=== PATIENT | male | born 1960 | race Caucasian/White ===

== ENCOUNTER 2018-02-21 08:15 | Observation (INO) ==
[2018-02-21] MEDS ORDERED: Ipratropium/Albuterol Neb 3 ML IH ONE (08:56)
--- NOTE | 2018-02-21 09:08 | Emergency Department Note ---
Disposition Clinical Impression: Acute dyspnea Acute exacerbation of CHF (congestive heart failure) Qualifiers: Heart failure type: unspecified Qualified Code(s): I50.9 - Heart failure, unspecified A-fib Qualifiers: Atrial fibrillation type: persistent Qualified Code(s): I48.1 - Persistent atrial fibrillation Disposition: Admitted As Inpatient Condition: Undetermined Referrals: Colin Mancini MD [Primary Care Provider] - Forms: ED Satisfaction Letter Time of Disposition: 10:40 SOB HPI - General Chief Complaint: ED Shortness of Breath/Dyspnea Stated Complaint: shortness of breath Time Seen by Provider: 02/21/18 08:31 Source: patient, EMS Mode of arrival: EMS Limitations: no limitations Nursing Notes Reviewed: Yes Vital Signs Reviewed: Yes - History of Present Illness 57-year-old male with history of atrial fibrillation, CHF, cardiomyopathy, arrives to the emergency department complaining of shortness of breath. The patient states this started roughly 2 days ago. He has no other associated complaints, no chest pain, no unilateral leg swelling, no hemoptysis, no history of DVT or PE. The patient states that this is similar to episodes in the past. He has no previous cardiac disease. Patient denies any other complaints at this time. He is resting comfortably. - Related Data Home Medications Medication Instructions Recorded Confirmed FLUoxetine HCl [Prozac] 20 mg PO DAILY 07/24/15 09/06/16 Lisinopril [Zestril] 20 mg PO DAILY 07/24/15 09/06/16 RisperiDONE [Risperdal] 3 mg PO HS 07/24/15 09/06/16 Simvastatin [Zocor] 20 mg PO HS 07/24/15 09/06/16 Carvedilol [Coreg] 37.5 mg PO BID 10/19/15 09/06/16 Digoxin [Lanoxin] 0.125 mg PO DAILY 10/19/15 09/06/16 Diltiazem HCl [Cardizem LA] 120 mg PO DAILY 10/19/15 09/06/16 Furosemide [Lasix] 20 mg PO DAILY 10/19/15 09/06/16 Multivitamin/Iron/Folic Acid 1 each PO DAILY 10/19/15 09/06/16 [Centrum Complete Multivit Tab] Sitagliptin Phosphate [Januvia] 50 mg PO DAILY 06/23/16 09/06/16 Dabigatran [Pradaxa] 150 mg PO BID 09/06/16 09/06/16 Mupirocin [Bactroban Oint] 1 appl TP DAILY 09/06/16 09/06/16 Oxybutynin [Ditropan] 5 mg PO DAILY 09/06/16 09/06/16 Previous Rx's Medication Instructions Recorded Potassium Chloride 10 meq PO DAILY #30 tab.er.prt 10/28/15 Hydrocodone/Acetaminophen 1 each PO Q6H PRN #10 tablet 07/05/16 [Hydrocodone-Acetamin 5-325 mg] levoFLOXacin [Levofloxacin] 500 mg PO DAILY #10 tablet 09/08/16 Ciprofloxacin HCl [Cipro] 500 mg PO BID #20 tablet 09/13/16 Meclizine HCl [Verticalm] 25 mg PO Q6H #20 tablet 09/13/16 Allergies Allergy/AdvReac Type Severity Reaction Status Date / Time cephalexin [From Keflex] Allergy Rash Verified 09/06/16 18:34 All systems ED: reviewed and negative except as stated. Constitutional: Denies: fever, chills, weakness ENT ED: Denies: congestion Cardiovascular: Reports: dyspnea on exertion. Denies: chest pain Respiratory: Reports: cough, dyspnea. Denies: wheezes Gastrointestinal: Denies: abdominal pain, nausea, vomiting Genitourinary: Denies: urgency, dysuria Musculoskeletal: Denies: back pain Neurological: Denies: headache Past Medical History - Past Medical History Attestation: Yes The following information was validated with the patient. Source: patient, old records reviewed Medical history: Reports: atrial fibrillation, cardiomyopathy, CHF, coronary artery disease, diabetes, hypertension, other Surgical history: Reports: cholecystectomy Psychiatric history: Reports: depression, other - Social History Smoking Status: Never smoker Smokeless Tobacco Status: No Alcohol use: Reports: none Drug use: Reports: none Physical Exam - General Limitations: no limitations General appearance: alert, in no apparent distress - Head Head exam: atraumatic, normocephalic, normal inspection - Eye Eye exam: Present: normal appearance, PERRL, EOMI - ENT ENT exam: normal exam, normal oropharynx, mucous membranes moist - Neck Neck exam: Present: normal inspection, full ROM, trachea midline - Chest Chest inspection: Present: normal inspection, symmetric chest wall rise - Respiratory Respiratory exam: Present: wheezes (mild expiratory) - Cardiovascular Cardiovascular exam: Present: regular rate, irregular rhythm, normal heart sounds - Abdominal Exam Abdominal exam: Present: soft, Non-Tender. Absent: tenderness, distention, guarding, rebound, rigidity - Extremities Exam Extremities exam: Present: normal inspection, full ROM. Absent: tenderness, pedal edema - Neurological Exam Neurological exam: Present: alert, oriented X3 - Skin Skin exam: Present: warm, dry, intact, normal color Course Vital Signs Temperature 98.4 F 02/21/18 08:16 Pulse Rate 104 02/21/18 08:16 Respiratory Rate 20 02/21/18 08:16 Blood Pressure 174/98 02/21/18 08:16 O2 Sat by Pulse Oximetry 94 02/21/18 08:16 Temperature 98.4 F 02/21/18 08:16 Pulse Rate 104 02/21/18 08:16 Respiratory Rate 16 02/21/18 10:31 Blood Pressure 174/98 02/21/18 08:16 O2 Sat by Pulse Oximetry 93 02/21/18 10:31 Oxygen Delivery Oxygen Delivery Room Air Shortness of Breath/Dyspnea - MDM Narrative Medical decision making narrative: Patient's workup in the emergency department distress findings consistent with congestive heart failure as the patient has some vascular congestion as well as cardiogenic pulmonary edema. The patient is mildly short of breath but given the patient's complex social history combined with his worsening shortness of breath, we will admit the patient to the hospital at this time. The patient was agreeing to plan. No further questions or concerns noted at this time. The patient was administered 40 mg IV Lasix here in the emergency department. His O2 saturation is ranging from 91-94% on room air. The patient is not tachypneic at this time. In addition the patient has a history of atrial fibrillation and is heart rate is noted to be in the 80s to low 100s. We will continue to monitor this. Patient made aware and agrees to plan. Accepted by Dr. Wiley. - Medical Records Medical records reviewed: Yes I reviewed the patient's medical records. - Lab Data Lab results reviewed: Yes I reviewed the patient's lab results. Result diagrams: 02/21/18 09:10 02/21/18 09:10 Lab Results 02/21/18 02/21/18 02/21/18 Range/Units 09:10 09:10 09:10 WBC 12.8 H (4.3-11.1) K/mcL RBC 4.81 (4.19-5.50) M/mcL Hgb 12.8 L (12.9-16.9) g/dL Hct 40.4 (37.5-50.1) % MCV 84.0 (83.0-100.0) fL MCH 26.6 L (28.0-33.3) pg MCHC 31.7 (31.6-35.5) g/dL RDW 15.6 H (11.5-14.5) % Plt Count 248 (140-400) K/mcL MPV 10.5 (9.4-12.4) fL Immature Gran % 0.5 (0-4) % Seg Neutrophils % 81.8 % Lymphocytes % 6.9 % Monocytes % 8.1 % Eosinophils % 2.2 % Basophils % 0.5 % Neutrophils # 10.5 H (1.6-8.9) K/mcL Lymphocytes # 0.9 (0.6-4.6) K/mcL Monocytes # 1.0 (0.0-1.3) K/mcL Eosinophils # 0.3 (0.0-0.6) K/mcL Basophils # 0.1 (0.0-0.2) K/mcL PT 14.7 H (9.4-12.1) Seconds INR 1.4 APTT 50.5 H (26.0-36.0) Seconds Sodium 140 (136-145) mEq/L Potassium 3.8 (3.5-5.1) mEq/L Chloride 103 (98-107) mEq/L Carbon Dioxide 28 (23-29) mEq/L BUN 15 (6-20) mg/dL Creatinine 0.95 (0.70-1.30) mg/dL Est GFR ( Amer) > 60 (> 60) Est GFR (Non-Af Amer) > 60 (> 60) BUN/Creatinine Ratio 16 (6-26) Glucose 139 H (70-105) mg/dL Calculated Osmolality 293 (280-300) Calcium 9.0 (8.6-10.3) mg/dL Troponin I < 0.03 (< 0.04) ng/mL - Radiology Data Radiology results reviewed: Yes I reviewed the patient's radiology results. Chest X-Ray 02/21/18 08:56 IMPRESSION: Cardiomegaly with vascular congestion and cardiogenic pulmonary edema. D/ / Julio Odom MD / Julio Odom MD Interpreting Provider: Julio Odom MD - EKG Data EKG attestation: Yes I reviewed and interpreted this EKG. EKG results narrative: Heart rate 100 beats for minute. Atrial fibrillation. No ST elevation or ST depression noted. Similar to EKG performed on 09/13/2016. No acute changes with the exception of mild tachycardia.
--- NOTE | 2018-02-21 09:33 | Emergency Department Note ---
Disposition Clinical Impression: Acute exacerbation of CHF (congestive heart failure), Acute dyspnea, A-fib Disposition: Admitted As Inpatient Condition: Undetermined Referrals: Colin Mancini MD [Primary Care Provider] - Forms: ED Satisfaction Letter General Adult HPI - General Chief complaint: ED Shortness of Breath/Dyspnea Stated complaint: shortness of breath Time Seen by Provider: 02/21/18 08:31 Source: patient, EMS Mode of arrival: EMS Limitations: no limitations - History of Present Illness Pain Scale: 0 - Related Data Home Medications Medication Instructions Recorded Confirmed FLUoxetine HCl [Prozac] 20 mg PO DAILY 07/24/15 09/06/16 Lisinopril [Zestril] 20 mg PO DAILY 07/24/15 09/06/16 RisperiDONE [Risperdal] 3 mg PO HS 07/24/15 09/06/16 Simvastatin [Zocor] 20 mg PO HS 07/24/15 09/06/16 Carvedilol [Coreg] 37.5 mg PO BID 10/19/15 09/06/16 Digoxin [Lanoxin] 0.125 mg PO DAILY 10/19/15 09/06/16 Diltiazem HCl [Cardizem LA] 120 mg PO DAILY 10/19/15 09/06/16 Furosemide [Lasix] 20 mg PO DAILY 10/19/15 09/06/16 Multivitamin/Iron/Folic Acid 1 each PO DAILY 10/19/15 09/06/16 [Centrum Complete Multivit Tab] Sitagliptin Phosphate [Januvia] 50 mg PO DAILY 06/23/16 09/06/16 Dabigatran [Pradaxa] 150 mg PO BID 09/06/16 09/06/16 Mupirocin [Bactroban Oint] 1 appl TP DAILY 09/06/16 09/06/16 Oxybutynin [Ditropan] 5 mg PO DAILY 09/06/16 09/06/16 Previous Rx's Medication Instructions Recorded Potassium Chloride 10 meq PO DAILY #30 tab.er.prt 10/28/15 Hydrocodone/Acetaminophen 1 each PO Q6H PRN #10 tablet 07/05/16 [Hydrocodone-Acetamin 5-325 mg] levoFLOXacin [Levofloxacin] 500 mg PO DAILY #10 tablet 09/08/16 Ciprofloxacin HCl [Cipro] 500 mg PO BID #20 tablet 09/13/16 Meclizine HCl [Verticalm] 25 mg PO Q6H #20 tablet 09/13/16 Allergies Allergy/AdvReac Type Severity Reaction Status Date / Time cephalexin [From Keflex] Allergy Rash Verified 09/06/16 18:34 Constitutional: Denies: fever, chills, weakness ENT ED: Denies: congestion Cardiovascular: Reports: dyspnea on exertion. Denies: chest pain Respiratory: Reports: cough, dyspnea. Denies: wheezes Gastrointestinal: Denies: abdominal pain, nausea, vomiting Genitourinary: Denies: urgency, dysuria Musculoskeletal: Denies: back pain Neurological: Denies: headache Past Medical History - Past Medical History Medical history: Reports: atrial fibrillation, cardiomyopathy, CHF, coronary artery disease, diabetes, hypertension, other Surgical history: Reports: cholecystectomy Psychiatric history: Reports: depression, other - Social History Smoking Status: Never smoker Smokeless Tobacco Status: No Alcohol use: Reports: none Drug use: Reports: none Physical Exam - General Limitations: no limitations General appearance: alert, in no apparent distress Course Vital Signs Temperature 98.4 F 02/21/18 08:16 Pulse Rate 104 02/21/18 08:16 Respiratory Rate 20 02/21/18 08:16 Blood Pressure 174/98 02/21/18 08:16 O2 Sat by Pulse Oximetry 94 02/21/18 08:16 Temperature 98.4 F 02/21/18 08:16 Pulse Rate 104 02/21/18 08:16 Respiratory Rate 16 02/21/18 10:31 Blood Pressure 174/98 02/21/18 08:16 O2 Sat by Pulse Oximetry 93 02/21/18 10:31 Oxygen Delivery Oxygen Delivery Room Air Medical Decision Making - Lab Data Result diagrams: 02/21/18 09:10 02/21/18 09:10 Lab Results 02/21/18 02/21/18 02/21/18 Range/Units 09:10 09:10 09:10 WBC 12.8 H (4.3-11.1) K/mcL RBC 4.81 (4.19-5.50) M/mcL Hgb 12.8 L (12.9-16.9) g/dL Hct 40.4 (37.5-50.1) % MCV 84.0 (83.0-100.0) fL MCH 26.6 L (28.0-33.3) pg MCHC 31.7 (31.6-35.5) g/dL RDW 15.6 H (11.5-14.5) % Plt Count 248 (140-400) K/mcL MPV 10.5 (9.4-12.4) fL Immature Gran % 0.5 (0-4) % Seg Neutrophils % 81.8 % Lymphocytes % 6.9 % Monocytes % 8.1 % Eosinophils % 2.2 % Basophils % 0.5 % Neutrophils # 10.5 H (1.6-8.9) K/mcL Lymphocytes # 0.9 (0.6-4.6) K/mcL Monocytes # 1.0 (0.0-1.3) K/mcL Eosinophils # 0.3 (0.0-0.6) K/mcL Basophils # 0.1 (0.0-0.2) K/mcL PT 14.7 H (9.4-12.1) Seconds INR 1.4 APTT 50.5 H (26.0-36.0) Seconds Sodium 140 (136-145) mEq/L Potassium 3.8 (3.5-5.1) mEq/L Chloride 103 (98-107) mEq/L Carbon Dioxide 28 (23-29) mEq/L BUN 15 (6-20) mg/dL Creatinine 0.95 (0.70-1.30) mg/dL Est GFR ( Amer) > 60 (> 60) Est GFR (Non-Af Amer) > 60 (> 60) BUN/Creatinine Ratio 16 (6-26) Glucose 139 H (70-105) mg/dL Calculated Osmolality 293 (280-300) Calcium 9.0 (8.6-10.3) mg/dL Troponin I < 0.03 (< 0.04) ng/mL Critical Care Time Critical Care Time: Yes Total Critical Care Time: 35 Attestation: Critical care performed: Time is exclusive of separately billable procedures. Time includes: direct patient care, patient reassessment, coordination of patient care, interpretation of data (laboratory data, radiology data, and respiratory data), review of patient's medical records, medical consultation and documentation of patient care. Procedures included in critical care time: Procedures excluded from critical care time: Attestation Statement - Attestation Attestation: I examined this patient and my medical decision-making was reviewed with the Resident Physician. I agree with the documented findings, disposition and treatment plan as described except to the extent set forth below. Patient to the ED was achieved with shortness of breath. Patient is a history of a developmental delay. On examination he does not appear dyspneic. His lungs are coarse. Plan. Nebs, chest x-ray reevaluate. Patient still dyspneic. Chest x-ray shows pulmonary edema. Patient with decompensated heart failure. Admitted to medicine.
[2018-02-21 09:37] LABS: Basophils # 0.1 K/mcL (0.0-0.2); Basophils % 0.5 %; Eosinophils # 0.3 K/mcL (0.0-0.6); Eosinophils % 2.2 %; Hematocrit 40.4 % (37.5-50.1); Hemoglobin 12.8 g/dL (12.9-16.9); Immature Granulocytes % 0.5 % (0-4); Lymphocytes # 0.9 K/mcL (0.6-4.6); Lymphocytes % 6.9 %; Mean Corpuscular HGB Conc 31.7 g/dL (31.6-35.5); Mean Corpuscular Hemoglobin 26.6 pg (28.0-33.3); Mean Platelet Volume 10.5 fL (9.4-12.4); Monocytes % 8.1 %; Neutrophils # 10.5 K/mcL (1.6-8.9); Platelet Count 248 K/mcL (140-400); Red Blood Count 4.81 M/mcL (4.19-5.50); Red Cell Distribution Width 15.6 % (11.5-14.5); Segmented Neutrophils % 81.8 %
[2018-02-21 09:45] LABS: INR 1.4; Prothrombin Time 14.7 Seconds (9.4-12.1)
[2018-02-21 09:47] LABS: Activated Partial Thrombo Time 50.5 Seconds (26.0-36.0)
[2018-02-21] MEDS ORDERED: Furosemide 40 MG/4 ML VIAL IVP ONE (09:55)
[2018-02-21 09:56] LABS: BUN/Creatinine Ratio 16 (6-26); Blood Urea Nitrogen 15 mg/dL (6-20); Carbon Dioxide 28 mEq/L (23-29); Chloride 103 mEq/L (98-107); Glucose 139 mg/dL (70-105); Osmolality,Calculated 293 (280-300); Potassium 3.8 mEq/L (3.5-5.1); Sodium 140 mEq/L (136-145); eGFR For African Americans > 60 (> 60); eGFR For Non-African Americans > 60 (> 60)
[2018-02-21 09:57] LABS: Troponin I < 0.03 ng/mL (< 0.04)
[2018-02-21] MEDS ORDERED: Ipratropium/Albuterol Neb 3 ML IH PRN (10:44)
[2018-02-21] MEDS ORDERED: Acetaminophen 325 MG TABLET PO PRN (10:49)
[2018-02-21] MEDS ORDERED: Naloxone 0.4 MG/ML INJ IVP PRN (10:49)
[2018-02-21] MEDS ORDERED: Dextrose Gel 15 GM/37.5 ML TUBE PO PRN ×2 (10:51)
[2018-02-21] MEDS ORDERED: *HR* Dextrose 50 % in Water (Syg) 50 ML SYRINGE IVP PRN (10:51)
[2018-02-21] MEDS ORDERED: D5% in Water 1,000 ML IVC PRN (10:51)
[2018-02-21 11:25] LABS: Estimated Average Glucose 131 mg/dl; Hemoglobin A1C 6.2 %
--- NOTE | 2018-02-21 11:30 | Internal Med History&Physical ---
Date of Encounter: 02/21/18 Time of Encounter: 10:47 Internal Medicine - H&P: HPI Chief complaint: "Short of breath" Admitted From: Emergency Dept Plans for Post Hospital Care: Home History of present illness: Mr. Park is a 57 year old male who presented to ED this morning after waking up with worsening "short of breath." He states that he started having progressively worsening SOB since 2 days ago. He states that he has a history of CHF and AFib. He states that he intermittently has episodes where he gets SOB. He does not wear supplemental oxygen at home. He denies any history of asthma or COPD. He denies fever, chills, chest pain, BLE edema, nausea, vomiting, abdominal pain, changes in bladder, or changes in bowels. He states that he lives at home alone. He has been compliant with all of his medications. At the time of my examination, he denies any SOB. He states that his respiratory status is back to baseline. He is saturating mid-90s on room air. He does not look to be in any distress. In the ED, CXR showed pulmonary vascular congestion consistent with CHF. Labwork was unremarkable. He received 1 dose of IV lasix 40 mg and 1 duoneb treatment. HR is in 80s and NSR. Past Med Surg Social Fam HX - Past Medical History Attestation: Yes The following information was validated with the patient. Source: patient Medical history: atrial fibrillation, cardiomyopathy, CHF, coronary artery disease, diabetes, hyperlipidemia, hypertension, other Psychiatric history: depression, other - Past Surgical History Surgical History: cholecystectomy - Social History Smoking Status: Never smoker Smokeless Tobacco Status: No Alcohol use: none Drug use: none - Family History Mother Family Member Ethnicity: Non- Living Status: Hx Family Cardiac Disorders: No Hx Family Respiratory Disorders: No Hx Family Cancer: No Hx Family GI Disorders: No Hx Family Endocrine Disorder: Yes (DM) Hx Family Neuromuscular Disorders: No Hx Family Neurologic Disorders: No Hx Family HEENT Disorders: No Hx Family Autoimmune Disorders: No Father Family Member Ethnicity: Non- Living Status: Hx Family Cardiac Disorders: No Hx Family Respiratory Disorders: No Hx Family Cancer: Yes (LUNG CANCER) Hx Family GI Disorders: No Hx Family Endocrine Disorder: Yes Hx Family Neuromuscular Disorders: No Hx Family Neurologic Disorders: No Hx Family HEENT Disorders: No Hx Family Autoimmune Disorders: No - Additional Family History Additional family history: Family history reviewed with patient. Internal Medicine - H&P: Meds FLUoxetine HCl [Prozac] 20 mg PO DAILY 07/24/15 [History] Lisinopril [Zestril] 20 mg PO DAILY 07/24/15 [History] RisperiDONE [Risperdal] 3 mg PO HS 07/24/15 [History] Simvastatin [Zocor] 20 mg PO HS 07/24/15 [History] Carvedilol [Coreg] 37.5 mg PO BID 10/19/15 [History] Digoxin [Lanoxin] 0.125 mg PO DAILY 10/19/15 [History] Diltiazem HCl [Cardizem LA] 120 mg PO DAILY 10/19/15 [History] Furosemide [Lasix] 20 mg PO DAILY 10/19/15 [History] Multivitamin/Iron/Folic Acid [Centrum Complete Multivit Tab] 1 each PO DAILY 04/26 [History] Potassium Chloride 10 meq PO DAILY #30 tab.er.prt 10/28/15 [Rx] Sitagliptin Phosphate [Januvia] 50 mg PO DAILY 06/23/16 [History] Hydrocodone/Acetaminophen [Hydrocodone-Acetamin 5-325 mg] 1 each PO Q6H PRN #10 tablet 07/05/16 [Rx] Dabigatran [Pradaxa] 150 mg PO BID 09/06/16 [History] Mupirocin [Bactroban Oint] 1 appl TP DAILY 09/06/16 [History] Oxybutynin [Ditropan] 5 mg PO DAILY 09/06/16 [History] levoFLOXacin [Levofloxacin] 500 mg PO DAILY #10 tablet 09/08/16 [Rx] Ciprofloxacin HCl [Cipro] 500 mg PO BID #20 tablet 09/13/16 [Rx] Meclizine HCl [Verticalm] 25 mg PO Q6H #20 tablet 09/13/16 [Rx] 3 Allergy/AdvReac Type Severity Reaction Status Date / Time cephalexin [From Keflex] Allergy Rash Verified 09/06/16 18:34 All Systems PM: A 10-system review of systems was performed and is negative for pertinent findings except as documented above in the HPI. - Constitutional Vitals: Temp Pulse Resp BP Pulse Ox 98.4 F 104 16 174/98 93 02/21/18 08:16 02/21/18 08:16 02/21/18 10:31 02/21/18 08:16 02/21/18 10:31 General appearance: Present: cooperative, A&O X 3, pleasant, no acute distress, answers questions appropriately - Head Head exam: Present: atraumatic, normal inspection, normocephalic - Eye Eye exam: Present: EOMI, PERRL. Absent: conjunctival injection, nystagmus, scleral icterus - ENT ENT exam: Present: mucous membranes moist, normal external ear exam, normal oropharynx - Neck Neck exam general surgery: Present: supple, trachea midline. Absent: lymphadenopathy, tenderness, thyromegaly - Respiratory Respiratory exam: Present: CTAB. Absent: accessory muscle use, rales, rhonchi, wheezes Additional comments: Normal WOB - Cardiovascular Cardiovascular exam: Present: RRR, +S1, +S2. Absent: diastolic murmur, gallop, rubs, systolic murmur Additional comments: Trace BLE edema - GI/Abdominal GI/Abdominal exam: Present: normal bowel sounds, soft. Absent: distended, hepatomegaly, mass, splenomegaly, tenderness - Neurological Exam Neurological exam: Present: alert, CN II-XII intact, oriented X3, no focal deficits, strengths equal and symetr throughout. Absent: motor sensory deficit , facial droop, speech deficit - Psychiatric Psychiatric exam: Present: normal affect, normal mood. Absent: agitated, anxious, depressed - Skin Skin exam: Present: dry, intact, warm. Absent: cyanosis, rash Internal Med - H&P Results - Labs CBC & Chem 7: 02/21/18 09:10 02/21/18 09:10 - VTE Contraindication No Overlap Therapy: Admin of oral Factor Xa Inhibitor - Assessment and plan (1) Acute exacerbation of CHF (congestive heart failure) Current Visit: Yes Status: Acute Assessment and plan: Admit for observation with telemetry. Looks like patient is now back to baseline respiratory status. Will observe overnight. Continue IV lasix 40 mg BID. Restrict fluids to 2L/day. Monitor strict I&Os and daily weights. Continue home medications. Supplemental oxygen and duonebs PRN SOB. Recheck labwork in AM. Obtain new ECHO in AM (last one in 2016). Qualifiers: Heart failure type: unspecified Qualified Code(s): I50.9 - Heart failure, unspecified (2) A-fib Current Visit: Yes Status: Chronic Assessment and plan: Looks to be in NSR and rate-controlled. Will continue home medications and anticoagulation. Continue telemetry. Repeat ECHO in AM as per above. Qualifiers: Atrial fibrillation type: persistent Qualified Code(s): I48.1 - Persistent atrial fibrillation (3) Cardiomyopathy Current Visit: Yes Status: Chronic Assessment and plan: Repeat ECHO in AM as per above. Continue telemetry. Qualifiers: Cardiomyopathy type: unspecified Qualified Code(s): I42.9 - Cardiomyopathy , unspecified (4) BPH (benign prostatic hypertrophy) with urinary obstruction Current Visit: Yes Status: Chronic Assessment and plan: Continue home medications. (5) Diabetes mellitus with neuropathy Current Visit: Yes Status: Chronic Assessment and plan: Continue accuchecks and SSI QID AC/HS. Start diabetic/cardiac/fluid restricted diet. Qualifiers: Diabetes mellitus type: type 2 Diabetes mellitus mcc insulin use: without intermodal dispatcher use Qualified Code(s): E11.40 - Type 2 diabetes mellitus with diabetic neuropathy, unspecified (6) Hyperlipidemia Current Visit: Yes Status: Chronic Assessment and plan: Continue home medications. Qualifiers: Hyperlipidemia type: unspecified Qualified Code(s): E78.5 - Hyperlipidemia , unspecified (7) Hypertension Current Visit: Yes Status: Chronic Assessment and plan: Continue home medications. Added hydralazine IV PRN HTN. Qualifiers: Hypertension type: essential hypertension Qualified Code(s): I10 - Essential (primary) hypertension (8) DVT prophylaxis Current Visit: Yes Status: Acute Assessment and plan: Continue home dabigatran and SCDs. - Time Spent With Patient Total time spent is greater than 50% in coordination of care (as documented) at patient's floor/unit and/or counseling patient: less than 15 minutes
[2018-02-21] MEDS: Insulin LISPRO 300 UNITS/3 ML VIAL SQ SCH ×3 (13:06→21:30)
[2018-02-21] MEDS: Multivit/Ca/Min/Fe/FA 1 TAB TABLET PO SCH (14:33)
[2018-02-21] MEDS: *HR* Dabigatran 150 MG CAPSULE PO SCH ×2 (14:33→21:31)
[2018-02-21] MEDS: Iron Polysaccharide Complex 150 MG CAPSULE PO SCH (14:33)
[2018-02-21] MEDS: RisperiDAL 3 MG TABLET PO SCH (14:34)
[2018-02-21] MEDS: Furosemide 40 MG/4 ML VIAL IVP SCH ×2 (14:34→21:30)
[2018-02-21] MEDS: Lisinopril 20 MG TABLET PO SCH (14:34)
[2018-02-21] MEDS: FLUoxetine 20 MG CAPSULE PO SCH (14:34)
[2018-02-21] MEDS: *HR* Digoxin 0.125 MG TABLET PO SCH (14:34)
--- NOTE | 2018-02-21 16:46 | Electrocardiograph Report ---
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
[2018-02-21] MEDS: Diltiazem CD (24hr) 120 MG CAPSULE PO SCH (18:59)
[2018-02-22 07:17] LABS: Basophils # 0.1 K/mcL (0.0-0.2); Basophils % 0.7 %; Eosinophils # 0.4 K/mcL (0.0-0.6); Eosinophils % 3.6 %; Hemoglobin 13.6 g/dL (12.9-16.9); Immature Granulocytes % 0.5 % (0-4); Lymphocytes # 1.2 K/mcL (0.6-4.6); Lymphocytes % 9.9 %; Mean Corpuscular HGB Conc 32.4 g/dL (31.6-35.5); Mean Corpuscular Hemoglobin 26.6 pg (28.0-33.3); Mean Platelet Volume 10.2 fL (9.4-12.4); Monocytes # 1.2 K/mcL (0.0-1.3); Monocytes % 9.9 %; Neutrophils # 9.4 K/mcL (1.6-8.9); Platelet Count 286 K/mcL (140-400); Red Blood Count 5.12 M/mcL (4.19-5.50); Red Cell Distribution Width 15.7 % (11.5-14.5); Segmented Neutrophils % 75.4 %
[2018-02-22 07:32] LABS: BUN/Creatinine Ratio 15 (6-26); Blood Urea Nitrogen 16 mg/dL (6-20); Calcium 9.1 mg/dL (8.6-10.3); Carbon Dioxide 32 mEq/L (23-29); Chloride 99 mEq/L (98-107); Glucose 117 mg/dL (70-105); Osmolality,Calculated 290 (280-300); Potassium 3.3 mEq/L (3.5-5.1); Sodium 139 mEq/L (136-145); eGFR For African Americans > 60 (> 60); eGFR For Non-African Americans > 60 (> 60)
[2018-02-22] MEDS: Insulin LISPRO 300 UNITS/3 ML VIAL SQ SCH ×4 (07:45→20:29)
[2018-02-22] MEDS: FLUoxetine 20 MG CAPSULE PO SCH (10:46)
[2018-02-22] MEDS: Multivit/Ca/Min/Fe/FA 1 TAB TABLET PO SCH (10:46)
[2018-02-22] MEDS: Iron Polysaccharide Complex 150 MG CAPSULE PO SCH (10:46)
[2018-02-22] MEDS: Diltiazem CD (24hr) 120 MG CAPSULE PO SCH (10:46)
[2018-02-22] MEDS: *HR* Digoxin 0.125 MG TABLET PO SCH (10:47)
[2018-02-22] MEDS: *HR* Dabigatran 150 MG CAPSULE PO SCH ×2 (10:47→20:30)
[2018-02-22] MEDS: RisperiDAL 3 MG TABLET PO SCH (10:47)
[2018-02-22] MEDS: Furosemide 40 MG/4 ML VIAL IVP SCH ×2 (10:47→20:30)
[2018-02-22] MEDS: Lisinopril 20 MG TABLET PO SCH (10:47)
--- NOTE | 2018-02-22 13:19 | Discharge Summary ---
Orders not resulted at time of discharge: Pending orders 02/23/18 04:00 BMP [Basic Metabolic Panel] AM 0400 Date of Encounter: 02/22/18 Time of Encounter: 13:17 - Discharge Diagnosis (1) Acute on chronic diastolic (congestive) heart failure Status: Acute (2) Hypertension Status: Chronic Assessment and Plan: Continue home medications. Added hydralazine IV PRN HTN. Qualifiers: Hypertension type: essential hypertension Qualified Code(s): I10 - Essential (primary) hypertension (3) Hyperlipidemia Status: Chronic Assessment and Plan: Continue home medications. Qualifiers: Hyperlipidemia type: unspecified Qualified Code(s): E78.5 - Hyperlipidemia , unspecified (4) A-fib Status: Chronic Assessment and Plan: Looks to be in NSR and rate-controlled. Will continue home medications and anticoagulation. Continue telemetry. Repeat ECHO in AM as per above. Qualifiers: Atrial fibrillation type: persistent Qualified Code(s): I48.1 - Persistent atrial fibrillation (5) Diabetes mellitus with neuropathy Status: Chronic Assessment and Plan: Continue accuchecks and SSI QID AC/HS. Start diabetic/cardiac/fluid restricted diet. Qualifiers: Diabetes mellitus type: type 2 Diabetes mellitus buttermaker continuous churn insulin use: without buttermaker continuous churn use Qualified Code(s): E11.40 - Type 2 diabetes mellitus with diabetic neuropathy, unspecified (6) BPH (benign prostatic hypertrophy) with urinary obstruction Status: Chronic Assessment and Plan: Continue home medications. (7) Acute exacerbation of CHF (congestive heart failure) Status: Acute Assessment and Plan: Admit for observation with telemetry. Looks like patient is now back to baseline respiratory status. Will observe overnight. Continue IV lasix 40 mg BID. Restrict fluids to 2L/day. Monitor strict I&Os and daily weights. Continue home medications. Supplemental oxygen and duonebs PRN SOB. Recheck labwork in AM. Obtain new ECHO in AM (last one in 2017). Qualifiers: Heart failure type: unspecified Qualified Code(s): I50.9 - Heart failure, unspecified (8) Cardiomyopathy Status: Chronic Assessment and Plan: Repeat ECHO in AM as per above. Continue telemetry. Qualifiers: Cardiomyopathy type: unspecified Qualified Code(s): I42.9 - Cardiomyopathy , unspecified Hospital course: Mr. Park is a 57 year old male - Time Spent with Patient Total time spent providing and/or coordinating discharge services: - Discharge Medications Home Medications: FLUoxetine HCl [Prozac] 20 mg PO DAILY 07/24/15 [History] Lisinopril [Zestril] 20 mg PO DAILY 07/24/15 [History] Simvastatin [Zocor] 20 mg PO HS 07/24/15 [History] Carvedilol [Coreg] 37.5 mg PO BID 10/19/15 [History] Digoxin [Lanoxin] 0.125 mg PO DAILY 10/19/15 [History] Diltiazem HCl [Cardizem LA] 120 mg PO DAILY 10/19/15 [History] Furosemide [Lasix] 20 mg PO DAILY 10/19/15 [History] Multivitamin/Iron/Folic Acid [Centrum Complete Multivit Tab] 1 each PO DAILY 04/26 [History] Sitagliptin Phosphate [Januvia] 50 mg PO DAILY 06/23/16 [History] Dabigatran [Pradaxa] 150 mg PO BID 09/06/16 [History] Mupirocin [Bactroban Oint] 1 appl TP DAILY 09/06/16 [History] Oxybutynin [Ditropan] 5 mg PO DAILY 09/06/16 [History] Iron Polysaccharide Complex [Ferrex 150] 150 mg PO DAILY 02/21/18 [History] Potassium Chloride [K-Tab ER] 10 meq PO DAILY 02/21/18 [History] risperiDONE [RisperDAL] 3 mg PO DAILY 02/21/18 [History] Allergies/Adverse Reactions: 3 Allergy/AdvReac Type Severity Reaction Status Date / Time cephalexin [From Keflex] Allergy Rash Verified 02/21/18 12:21 Date of admission: 02/21/18 10:47 Primary care physician: Colin Mancini MD Consults: 02/21/18 10:51 Consult to Diabetes Education [CONS] Stat Comment: Reason for Consult: Diabetic Diet Education Consult to Examiner Of Currency [CONS] Routine Reason for SW Consult: Discharge Planning 02/22/18 09:38 Consult to Nurse Navigator [CONS] Routine Comment: CHF Discharging clinician: Caro Rodriguez Anticipated date of discharge: 02/22/18 - Constitutional Vitals: Temp Pulse Resp BP Pulse Ox 97.5 F L 79 16 111/65 95 02/22/18 12:02 02/22/18 12:02 06/14/18 12:02 02/22/18 12:02 02/22/18 12:02 General appearance: Present: cooperative, A&O X 3, pleasant, no acute distress, answers questions appropriately - Patient Status Condition: Undetermined - Discharge Instructions Follow Up With: Colin Mancini MD [Primary Care Provider] - - VTE Documentation of Mechanical Device: Intermittent pneumatic compression device Contraindication No Overlap Therapy: Admin of oral Factor Xa Inhibitor
--- NOTE | 2018-02-22 13:26 | Internal Med Progress Note ---
Date of Encounter: 02/22/18 Time of Encounter: 13:24 - Assessment and plan (1) Acute on chronic diastolic (congestive) heart failure Current Visit: Yes Status: Acute Assessment and plan: per hx. presented with worsening SOB. CXR with vascular congestion. BNP 177. TTE with EF 50%, indeterminate diastolic dysfunction, normal wall motion. Symptoms improving with IV Lasix. -2 L so far. Continue IV diuresis, daily weights and strict I&O's. (2) Hypertension Current Visit: Yes Status: Chronic Assessment and plan: per hx. BP controlled. Cont home BP medications. Qualifiers: Hypertension type: essential hypertension Qualified Code(s): I10 - Essential (primary) hypertension (3) Hyperlipidemia Current Visit: Yes Status: Chronic Assessment and plan: per hx. Cont home statin Qualifiers: Hyperlipidemia type: unspecified Qualified Code(s): E78.5 - Hyperlipidemia , unspecified (4) A-fib Current Visit: Yes Status: Chronic Assessment and plan: per hx. Rate controlled. Cont home BB, pradaxa and digoxin Qualifiers: Atrial fibrillation type: persistent Qualified Code(s): I48.1 - Persistent atrial fibrillation (5) DVT prophylaxis Current Visit: No Status: Acute Assessment and plan: pradaxa - Time Spent With Patient Total time spent is greater than 50% in coordination of care (as documented) at patient's floor/unit and/or counseling patient: - Subjective Interval history: Seen and examined at bedside. Patient is new to me, information obtained from chart review and patient report. Sitting up in chair bedside. Says he feels better. Still has some SOB with exertion. No chest pain. - Constitutional Vitals: Temp Pulse Resp BP Pulse Ox 97.5 F L 79 16 111/65 95 02/22/18 12:02 02/22/18 12:02 02/22/18 12:02 02/22/18 12:02 02/22/18 12:02 General appearance: Present: cooperative, A&O X 3, pleasant, no acute distress, answers questions appropriately - Head Head exam: Present: atraumatic, normocephalic - Eye Eye exam: Present: PERRL, conjuntiva pink, sclera anicteric Pupils: Present: PERRL - Neck Neck exam general surgery: Present: supple, trachea midline. Absent: lymphadenopathy - Respiratory Respiratory exam: Present: CTAB, rales (Scattered faint rails bilateral lower lobes). Absent: accessory muscle use, rhonchi, wheezes - Cardiovascular Cardiovascular exam: Present: RRR, +S1, +S2. Absent: diastolic murmur, gallop, rubs, systolic murmur - GI/Abdominal GI/Abdominal exam: Present: normal bowel sounds, soft, no peritoneal signs. Absent: distended, tenderness - Extremities Exam Extremities exam: Present: warm, radial pulses palpable and symmetrical. Absent : calf tenderness, cyanotic, pedal edema - Neurological Exam Neurological exam: Present: CN II-XII intact, oriented X3, no focal deficits. Absent: pronater drift, facial droop, speech deficit - Skin Skin exam: Present: dry, intact Internal Medicine: Result - Labs CBC & Chem 7: 02/22/18 06:52 02/22/18 06:52 Labs: Short CBC 02/22/18 Range/Units 06:52 WBC 12.4 H (4.3-11.1) K/mcL Hgb 13.6 (12.9-16.9) g/dL Hct 42.0 (37.5-50.1) % Plt Count 286 (140-400) K/mcL Neutrophils # 9.4 H (1.6-8.9) K/mcL BMP 02/22/18 06:52 Sodium 139 Potassium 3.3 L Chloride 99 Carbon Dioxide 32 H BUN 16 Creatinine 1.09 Glucose 117 H Calcium 9.1 - ABG Interpretation ABG results: PT/INR, D-dimer PT 14.7 Seconds (9.4-12.1) H 02/21/18 09:10 - Impressions Impressions Echocardiogram 02/21/18 10:53 Impressions: LVEF 50-55%. Indeterminate diastolic function. Mildly dilated left ventricle. Normal right ventricular structure and function. Mild mitral regurgitation. No pulmonary hypertension. Left Ventricular Wall Motion: Rest Echo Findings All wall segments showed normal motion. Findings: Study Quality * Technically adequate exam. ECG Findings * Atrial fibrillation. Left Ventricle * Indeterminate diastolic function. * Mildly dilated left ventricle. * LVEF 50-55%. Right Ventricle * Normal right ventricular structure and function. Left Atrium * Moderately dilated left atrium. Right Atrium * Normal right atrial size. Mitral Valve * Normal mitral valve structure. * No mitral stenosis. * Mild mitral regurgitation. Aortic Valve * No aortic regurgitation. * Aortic valve not well visualized. * No aortic stenosis. Tricuspid Valve * Tricuspid valve not well visualized. * Trace tricuspid regurgitation. * Estimated RA pressure is 3 mmHg. * Estimated RVSP is 25 mmHg. * No pulmonary hypertension. Pulmonic Valve * Pulmonic valve is not well visualized. * No pulmonic stenosis. * No pulmonic regurgitation. Pulmonary Artery * Pulmonary artery not well visualized. Aorta * Normally sized aortic root. Pericardium * There is no pericardial effusion present. Interatrial Septum * No evidence of PFO by color Doppler. IVC * Normal IVC dimensions and inspiratory collapse. - VTE Documentation of Mechanical Device: Intermittent pneumatic compression device Contraindication No Overlap Therapy: Admin of oral Factor Xa Inhibitor Consult Discharge Plan - Plan Referrals: Colin Mancini MD [Primary Care Provider] -
[2018-02-23 05:42] LABS: BUN/Creatinine Ratio 20 (6-26); Blood Urea Nitrogen 22 mg/dL (6-20); Calcium 9.3 mg/dL (8.6-10.3); Carbon Dioxide 26 mEq/L (23-29); Chloride 102 mEq/L (98-107); Glucose 134 mg/dL (70-105); Osmolality,Calculated 293 (280-300); Potassium 3.9 mEq/L (3.5-5.1); Sodium 139 mEq/L (136-145); eGFR For African Americans > 60 (> 60); eGFR For Non-African Americans > 60 (> 60)
[2018-02-23 07:09] VITALS: BP 125/82
[2018-02-23] MEDS: FLUoxetine 20 MG CAPSULE PO SCH (07:47)
[2018-02-23] MEDS: Diltiazem CD (24hr) 120 MG CAPSULE PO SCH (07:47)
[2018-02-23] MEDS: Multivit/Ca/Min/Fe/FA 1 TAB TABLET PO SCH (07:47)
[2018-02-23] MEDS: Iron Polysaccharide Complex 150 MG CAPSULE PO SCH (07:48)
[2018-02-23] MEDS: *HR* Dabigatran 150 MG CAPSULE PO SCH (07:48)
[2018-02-23] MEDS: Lisinopril 20 MG TABLET PO SCH (07:48)
[2018-02-23] MEDS: RisperiDAL 3 MG TABLET PO SCH (07:48)
[2018-02-23] MEDS: *HR* Digoxin 0.125 MG TABLET PO SCH (07:48)
[2018-02-23] MEDS: Furosemide 40 MG/4 ML VIAL IVP SCH (07:49)
--- NOTE | 2018-02-23 09:18 | Discharge Summary ---
Date of Encounter: 02/23/18 Time of Encounter: 09:23 - Discharge Diagnosis (1) Acute on chronic diastolic (congestive) heart failure Priority: Primary Status: Acute Assessment and Plan: per hx. Presented with worsening SOB. CXR with vascular congestion. BNP 177. TTE with EF 50%, indeterminate diastolic dysfunction, normal wall motion. Symptoms improved with IV Lasix (-2.8 liter). Appeared eulvolemic at time of discharge. Advised on low sodium diet and fluid restriction. Cont home Lasix, BB , digoxin, MAGO. Recommend follow-up with primary outpatient grants officer (2) Hypertension Priority: Primary Status: Chronic Assessment and Plan: per hx. BP controlled. Cont home BP medications. Qualifiers: Hypertension type: essential hypertension Qualified Code(s): I10 - Essential (primary) hypertension (3) Hyperlipidemia Priority: Primary Status: Chronic Assessment and Plan: per hx. Cont home statin Qualifiers: Hyperlipidemia type: unspecified Qualified Code(s): E78.5 - Hyperlipidemia , unspecified (4) A-fib Priority: Primary Status: Chronic Assessment and Plan: per hx. Rate controlled. Cont home BB, pradaxa and digoxin Qualifiers: Atrial fibrillation type: persistent Qualified Code(s): I48.1 - Persistent atrial fibrillation Hospital course: Please see assessment and plan for hospital course. Discharge discussed with: patient (Seen and examined at bedside. Sitting up in bed eating breakfast. Says he feels better. No chest pain or shortness of breath. Would like to go home today.) - Time Spent with Patient Total time spent providing and/or coordinating discharge services: - Discharge Medications Home Medications: FLUoxetine HCl [Prozac] 20 mg PO DAILY 07/24/15 [History] Lisinopril [Zestril] 20 mg PO DAILY 07/24/15 [History] Simvastatin [Zocor] 20 mg PO HS 07/24/15 [History] Carvedilol [Coreg] 37.5 mg PO BID 10/19/15 [History] Digoxin [Lanoxin] 0.125 mg PO DAILY 10/19/15 [History] Diltiazem HCl [Cardizem LA] 120 mg PO DAILY 10/19/15 [History] Furosemide [Lasix] 20 mg PO DAILY 10/19/15 [History] Multivitamin/Iron/Folic Acid [Centrum Complete Multivit Tab] 1 each PO DAILY 04/26 [History] Sitagliptin Phosphate [Januvia] 50 mg PO DAILY 06/23/16 [History] Dabigatran [Pradaxa] 150 mg PO BID 09/06/16 [History] Mupirocin [Bactroban Oint] 1 appl TP DAILY 09/06/16 [History] Oxybutynin [Ditropan] 5 mg PO DAILY 09/06/16 [History] Iron Polysaccharide Complex [Ferrex 150] 150 mg PO DAILY 02/21/18 [History] Potassium Chloride [K-Tab ER] 10 meq PO DAILY 02/21/18 [History] risperiDONE [RisperDAL] 3 mg PO DAILY 02/21/18 [History] Allergies/Adverse Reactions: 3 Allergy/AdvReac Type Severity Reaction Status Date / Time cephalexin [From Keflex] Allergy Rash Verified 02/21/18 12:21 Date of admission: 02/21/18 10:47 Primary care physician: Colin Mancini MD Consults: 02/21/18 10:51 Consult to Diabetes Education [CONS] Stat Comment: Reason for Consult: Diabetic Diet Education Consult to Entry Manager [CONS] Routine Reason for SW Consult: Discharge Planning 02/22/18 09:38 Consult to Nurse Navigator [CONS] Routine Comment: CHF Discharging clinician: Caro Rodriguez Anticipated date of discharge: 02/23/18 - Constitutional Vitals: Temp Pulse Resp BP Pulse Ox 98.1 F 74 16 125/82 92 02/23/18 07:06 02/23/18 07:06 02/23/18 07:06 02/23/18 07:06 02/23/18 07:06 General appearance: Present: cooperative, A&O X 3, pleasant, no acute distress, answers questions appropriately - Head Head exam: Present: atraumatic, normocephalic - Eye Eye exam: Present: PERRL, conjuntiva pink, sclera anicteric Pupils: Present: PERRL - Neck Neck exam general surgery: Present: supple, trachea midline. Absent: lymphadenopathy - Respiratory Respiratory exam: Present: CTAB. Absent: accessory muscle use, rales, rhonchi, wheezes - Cardiovascular Cardiovascular exam: Present: irregular rhythm (Tele: A-fib), +S1, +S2. Absent : diastolic murmur, gallop, rubs, systolic murmur - GI/Abdominal GI/Abdominal exam: Present: normal bowel sounds, soft, no peritoneal signs. Absent: distended, tenderness - Extremities Exam Extremities exam: Present: warm, radial pulses palpable and symmetrical. Absent : calf tenderness, cyanotic, pedal edema - Neurological Exam Neurological exam: Present: CN II-XII intact, oriented X3, no focal deficits. Absent: pronater drift, facial droop, speech deficit - Skin Skin exam: Present: dry, intact - Patient Status Disposition: Home, Self-Care Condition: Good Functional capacity at discharge: independent ambulation Overall status at discharge: patient is back to baseline - Discharge Instructions Instructions: Heart Failure (DC), Low Sodium Diet (DC) Follow Up With: Colin Mancini MD [Primary Care Provider] - (Please call for follow-up appt within 1 week. ) Marv Lovell MD [Partnered Physician] - (Please call for follow-up appt within 1-2 weeks ) - Diet and Activity Activity: increase activity as tolerated Diet: low fat, low cholesterol, low salt diet - VTE Documentation of Mechanical Device: Intermittent pneumatic compression device Contraindication No Overlap Therapy: Admin of oral Factor Xa Inhibitor
--- NOTE | 2018-02-23 10:44 | Physician Discharge Referral ---
Home Health/Hosp Referral Info Transfer to: Home Health Attending Provider: Caro Rodriguez CNP Provider in Charge Post Discharge: PCP - Diagnosis (1) Acute on chronic diastolic (congestive) heart failure Status: Acute (2) Hypertension Status: Chronic (3) Hyperlipidemia Status: Chronic (4) A-fib Status: Chronic - Respiratory Orders None Smoking Cessation: Smoking cessation has been advised. For more information, call the [place] Tobacco Quit Line at 9-602-PWPJ-NOW. - Diet/Nutrition Diet/Nutrition Orders: No Added Salt (DAYNA), Cardiac - Activity Activity Orders: Up ad dee, Ambulate - Services Needed Following services are medically necessary services: Nursing, Home Health Aide - Transfer Medications Home Medications: FLUoxetine HCl [Prozac] 20 mg PO DAILY 07/24/15 [History] Lisinopril [Zestril] 20 mg PO DAILY 07/24/15 [History] Simvastatin [Zocor] 20 mg PO HS 07/24/15 [History] Carvedilol [Coreg] 37.5 mg PO BID 10/19/15 [History] Digoxin [Lanoxin] 0.125 mg PO DAILY 10/19/15 [History] Diltiazem HCl [Cardizem LA] 120 mg PO DAILY 10/19/15 [History] Furosemide [Lasix] 20 mg PO DAILY 10/19/15 [History] Multivitamin/Iron/Folic Acid [Centrum Complete Multivit Tab] 1 each PO DAILY 04/26 [History] Sitagliptin Phosphate [Januvia] 50 mg PO DAILY 06/23/16 [History] Dabigatran [Pradaxa] 150 mg PO BID 09/06/16 [History] Mupirocin [Bactroban Oint] 1 appl TP DAILY 09/06/16 [History] Oxybutynin [Ditropan] 5 mg PO DAILY 09/06/16 [History] Iron Polysaccharide Complex [Ferrex 150] 150 mg PO DAILY 02/21/18 [History] Potassium Chloride [K-Tab ER] 10 meq PO DAILY 02/21/18 [History] risperiDONE [RisperDAL] 3 mg PO DAILY 02/21/18 [History] Allergies/Adverse Reactions: 3 Allergy/AdvReac Type Severity Reaction Status Date / Time cephalexin [From Keflex] Allergy Rash Verified 02/21/18 12:21 Certification: Further, I certify that my clinical findings support that this patient is homebound (i.e. absences from home require considerable and taxing effort and are for medical reasons or tenriism services or infrequently or short duration when for other reasons) because: Homebound Reason: Patient requires assistance of a person or device to safely leave home Attestation: My signature below is to certify that this patient is under my care and that I, or nurse practitioner, or a physician's diploma medical assistant working with me, has a face-to -face encounter with this patient.
== END 2018-02-23 14:12 | disposition home or self-care (01) ==
LOC: 2SOUTHHOLD 08:15 → EMEROO 08:15 → 2SOUTHHOLD 11:19 → 3BNU 13:27
PROVIDERS: ADMIT Family Medicine; ATTEND Family Medicine

== ENCOUNTER 2018-03-22 07:56 | Observation (INO) ==
--- NOTE | 2018-03-22 08:21 | Emergency Department Note ---
Disposition Clinical Impression: Palpitations, A-fib Disposition: Admitted As Inpatient Condition: Fair Arrhythmia/Palpitations HPI - General Chief Complaint: ED Arrhythmia/Palpitations Stated Complaint: "afib sent by [facility]" Time Seen by Provider: 03/22/18 08:00 Nursing Notes Reviewed: Yes Vital Signs Reviewed: Yes - History of Present Illness HPI Narrative: 57-year-old male presents to the emergency department with concern for A. fib with RVR. Patient was sent by the cardiology office with concern that he was in A. fib with RVR with a rate at 140. Patient denies any fevers, chills, chest pain, chest pressure, chest tightness. Patient reports having shortness of breath on exertion. [facility] - Related Data Home Medications Medication Instructions Recorded Confirmed Carvedilol [Coreg] 37.5 mg PO BIDWM 03/22/18 03/22/18 Diltiazem CD (24hr) [Cardizem CD] 120 mg PO DAILY 03/22/18 03/22/18 FLUoxetine HCl [PROzac] 20 mg PO DAILY 03/22/18 03/22/18 Oxybutynin [Ditropan] 2.5 mg PO BID 03/22/18 03/22/18 Simvastatin [Zocor] 10 mg PO DAILY 03/22/18 03/22/18 risperiDONE [Risperdal] 3 mg PO BID 03/22/18 03/22/18 Allergies Allergy/AdvReac Type Severity Reaction Status Date / Time cephalexin [From Keflex] Allergy Rash Verified 03/22/18 12:06 All systems ED: reviewed and negative except as stated. Review of Systems: As Per HPI Constitutional: Denies: fever Cardiovascular: Reports: other (Irregular heart rate). Denies: chest pain, palpitations Respiratory: Denies: cough, dyspnea Gastrointestinal: Denies: abdominal pain, nausea, vomiting Genitourinary: Denies: dysuria Musculoskeletal: Denies: back pain Neurological: Denies: headache, weakness, numbness, paresthesias Past Medical History - Past Medical History Medical history: Reports: atrial fibrillation, cardiomyopathy, CHF, coronary artery disease, diabetes, hypertension, other Surgical history: Reports: cholecystectomy Psychiatric history: Reports: depression, other - Social History Smoking Status: Never smoker Smokeless Tobacco Status: No Alcohol use: Reports: none Drug use: Reports: none Physical Exam - Head Head exam: atraumatic, normocephalic - Eye Eye exam: Present: EOMI - ENT ENT exam: normal oropharynx - Neck Neck exam: Present: trachea midline - Chest Chest inspection: Present: symmetric chest wall rise - Respiratory Respiratory exam: Present: normal lung sounds bilaterally. Absent: respiratory distress - Cardiovascular Cardiovascular exam: Present: tachycardia, irregular rhythm, normal heart sounds - Abdominal Exam Abdominal exam: Present: soft, Non-Tender. Absent: distention, guarding, rebound, rigidity - Extremities Exam Extremities exam: Present: normal capillary refill. Absent: calf tenderness - Neurological Exam Neurological exam: Present: alert, CN II-XII intact - Psychiatric Psychiatric exam: Present: flat affect - Skin Skin exam: Present: warm, dry, intact, pallor Course Vital Signs Temperature 98.2 F 03/22/18 08:00 Pulse Rate 94 03/22/18 08:00 Respiratory Rate 18 03/22/18 08:00 Blood Pressure 158/112 03/22/18 08:00 O2 Sat by Pulse Oximetry 96 03/22/18 08:00 Temperature 98.2 F 03/22/18 08:23 Pulse Rate 106 03/22/18 10:44 Respiratory Rate 18 03/22/18 13:18 Blood Pressure 154/116 03/22/18 13:18 O2 Sat by Pulse Oximetry 96 03/22/18 10:44 Oxygen Delivery Oxygen Delivery Room Air Arrhythmia/Palpitations - [facility] Narrative Medical decision making narrative: 57-year-old male presents emergency department with concern for A. fib with RVR. Patient currently asymptomatic with it. He is hemodynamically stable. We will give patient immediate release Cardizem 30 mg at this time. EKG reveals A. fib with RVR. Patient has good kidney function. Initial potassium was 5.8, but I was told by lab that the specimen was hemolyzed. Obtaining blood cultures. D-dimer was elevated at 972. Obtaining a CT angiogram of the chest troponin is 0.03. Chest x-ray did not reveal any evidence of pneumonia or any other card he pulmonary abnormality. Patient has tachycardia with leukocytosis of 13,000. Lactic acid was normal. Blood cultures have already been obtained. Not finding a source of infection at this time. I spoke with Bryson Torrez with cardiology. They agreed of the consult and follow-up with patient on the floor. Patient's heart rate decreased into the 90s here in the emergency department after administration of immediate release Cardizem. Urinalysis did not reveal any evidence of infection. TSH was normal. Spoke with patient about admission. He agreed with plan. Patient minute to Dr. Alonso for age of fibrillation with RVR, hemodynamically stable not in any acute distress. - Lab Data Result diagrams: 03/22/18 08:20 03/22/18 09:54 Lab Results 03/22/18 03/22/18 03/22/18 Range/Units 08:20 08:20 08:20 WBC 13.0 H (4.3-11.1) K/mcL RBC 4.46 (4.19-5.50) M/mcL Hgb 12.1 L (12.9-16.9) g/dL Hct 37.4 L (37.5-50.1) % MCV 83.9 (83.0-100.0) fL MCH 27.1 L (28.0-33.3) pg MCHC 32.4 (31.6-35.5) g/dL RDW 16.1 H (11.5-14.5) % Plt Count 237 (140-400) K/mcL MPV 10.9 (9.4-12.4) fL Immature Gran % 0.5 (0-4) % Seg Neutrophils % 79.1 % Lymphocytes % 10.1 % Monocytes % 7.3 % Eosinophils % 2.2 % Basophils % 0.8 % Neutrophils # 10.3 H (1.6-8.9) K/mcL Lymphocytes # 1.3 (0.6-4.6) K/mcL Monocytes # 1.0 (0.0-1.3) K/mcL Eosinophils # 0.3 (0.0-0.6) K/mcL Basophils # 0.1 (0.0-0.2) K/mcL PT 13.4 H (9.4-12.1) Seconds INR 1.2 APTT 32.9 (26.0-36.0) Seconds D-Dimer 972 H (0-500) ng/mLFEU Sodium TNP Potassium TNP Chloride TNP Carbon Dioxide TNP BUN TNP Creatinine TNP Est GFR ( Amer) TNP Est GFR (Non-Af Amer) TNP BUN/Creatinine Ratio TNP Glucose TNP Calculated Osmolality TNP Lactic Acid (0.5-2.2) mmol/L Calcium TNP Magnesium (1.6-2.6) mg/dL Troponin I < 0.03 (< 0.04) ng/mL TSH 2.003 (0.340-5.600) mcIU/mL Urine Color (Yellow) Urine Clarity (Clear) Urine pH (5.0-8.0) pH Units Ur Specific [place] (1.010-1.025) Urine Protein (Neg-Trace) mg/dL Urine Glucose (UA) (Normal) mg/dL Urine Ketones (Negative) mg/dL Urine Blood (Negative) Urine Nitrite (Negative) Urine Bilirubin (Negative) Urine Urobilinogen (Normal) mg/dL Ur Leukocyte Esterase (Negative) Urine Microscopic RBC (0-3) per hpf Urine Microscopic WBC (0-3) per hpf Ur Squamous Epith Cells (None-Few) per lpf Calcium Oxalate Crystal Urine Bacteria (None-Few) per hpf Hyaline Casts (None-Few) per lpf Urine Yeast (None Seen) per hpf Ur Culture Indicated? (NO) Digoxin (0.8-2.0) ng/mL 03/22/18 03/22/18 03/22/18 Range/Units 08:36 08:36 09:20 WBC (4.3-11.1) K/mcL RBC (4.19-5.50) M/mcL Hgb (12.9-16.9) g/dL Hct (37.5-50.1) % MCV (83.0-100.0) fL MCH (28.0-33.3) pg MCHC (31.6-35.5) g/dL RDW (11.5-14.5) % Plt Count (140-400) K/mcL MPV (9.4-12.4) fL Immature Gran % (0-4) % Seg Neutrophils % % Lymphocytes % % Monocytes % % Eosinophils % % Basophils % % Neutrophils # (1.6-8.9) K/mcL Lymphocytes # (0.6-4.6) K/mcL Monocytes # (0.0-1.3) K/mcL Eosinophils # (0.0-0.6) K/mcL Basophils # (0.0-0.2) K/mcL PT (9.4-12.1) Seconds INR APTT (26.0-36.0) Seconds D-Dimer (0-500) ng/mLFEU Sodium 140 Potassium 4.0 Chloride 108 H Carbon Dioxide 22 L BUN 16 Creatinine 0.84 Est GFR ( Amer) > 60 Est GFR (Non-Af Amer) > 60 BUN/Creatinine Ratio 19 Glucose 114 H Calculated Osmolality 292 Lactic Acid 1.2 (0.5-2.2) mmol/L Calcium 8.5 L Magnesium (1.6-2.6) mg/dL Troponin I (< 0.04) ng/mL TSH (0.340-5.600) mcIU/mL Urine Color Yellow (Yellow) Urine Clarity Clear (Clear) Urine pH 6.0 (5.0-8.0) pH Units Ur Specific [place] 1.027 H (1.010-1.025) Urine Protein 30 H (Neg-Trace) mg/dL Urine Glucose (UA) Normal (Normal) mg/dL Urine Ketones Negative (Negative) mg/dL Urine Blood Negative (Negative) Urine Nitrite Negative (Negative) Urine Bilirubin Negative (Negative) Urine Urobilinogen Normal (Normal) mg/dL Ur Leukocyte Esterase Small H (Negative) Urine Microscopic RBC 0-3 (0-3) per hpf Urine Microscopic WBC 5-15 H (0-3) per hpf Ur Squamous Epith Cells Many H (None-Few) per lpf Calcium Oxalate Crystal Present Urine Bacteria None Seen (None-Few) per hpf Hyaline Casts Few (None-Few) per lpf Urine Yeast Few H (None Seen) per hpf Ur Culture Indicated? NO. A (NO) Digoxin (0.8-2.0) ng/mL 03/22/18 Range/Units 09:54 WBC (4.3-11.1) K/mcL RBC (4.19-5.50) M/mcL Hgb (12.9-16.9) g/dL Hct (37.5-50.1) % MCV (83.0-100.0) fL MCH (28.0-33.3) pg MCHC (31.6-35.5) g/dL RDW (11.5-14.5) % Plt Count (140-400) K/mcL MPV (9.4-12.4) fL Immature Gran % (0-4) % Seg Neutrophils % % Lymphocytes % % Monocytes % % Eosinophils % % Basophils % % Neutrophils # (1.6-8.9) K/mcL Lymphocytes # (0.6-4.6) K/mcL Monocytes # (0.0-1.3) K/mcL Eosinophils # (0.0-0.6) K/mcL Basophils # (0.0-0.2) K/mcL PT (9.4-12.1) Seconds INR APTT (26.0-36.0) Seconds D-Dimer (0-500) ng/mLFEU Sodium Potassium 3.9 Chloride Carbon Dioxide BUN Creatinine Est GFR ( Amer) Est GFR (Non-Af Amer) BUN/Creatinine Ratio Glucose Calculated Osmolality Lactic Acid (0.5-2.2) mmol/L Calcium Magnesium 1.8 (1.6-2.6) mg/dL Troponin I (< 0.04) ng/mL TSH (0.340-5.600) mcIU/mL Urine Color (Yellow) Urine Clarity (Clear) Urine pH (5.0-8.0) pH Units Ur Specific [place] (1.010-1.025) Urine Protein (Neg-Trace) mg/dL Urine Glucose (UA) (Normal) mg/dL Urine Ketones (Negative) mg/dL Urine Blood (Negative) Urine Nitrite (Negative) Urine Bilirubin (Negative) Urine Urobilinogen (Normal) mg/dL Ur Leukocyte Esterase (Negative) Urine Microscopic RBC (0-3) per hpf Urine Microscopic WBC (0-3) per hpf Ur Squamous Epith Cells (None-Few) per lpf Calcium Oxalate Crystal Urine Bacteria (None-Few) per hpf Hyaline Casts (None-Few) per lpf Urine Yeast (None Seen) per hpf Ur Culture Indicated? (NO) Digoxin < 0.3 L (0.8-2.0) ng/mL - EKG Data EKG attestation: Yes I reviewed and interpreted this EKG. EKG results narrative: 8:12 Ventricular rate 107 bpm, no P waves, QRS duration 98 ms, QT 356 ms, QTC 418 ms , normal axis. Atrial fibrillation with RVR. Ventricular rate 107 bpm. No evidence of any new ischemic ST changes on comparison with previous electrocardiogram obtained on 02/24/2018. Attestation Statement - Attestation Attestation: I, Manav Musa DO, examined this patient [id number] and my medical decision-making was reviewed with Dr. Albert Amanda, Resident Physician. I agree with the documented findings, disposition and treatment plan as described except to the extent set forth below. Please see my progress notes for details.
[2018-03-22] MEDS ORDERED: 0.9 % Sodium Chloride 1,000 ML IVC ONE (08:22)
[2018-03-22 08:38] LABS: Basophils # 0.1 K/mcL (0.0-0.2); Basophils % 0.8 %; Eosinophils # 0.3 K/mcL (0.0-0.6); Eosinophils % 2.2 %; Hematocrit 37.4 % (37.5-50.1); Hemoglobin 12.1 g/dL (12.9-16.9); Immature Granulocytes % 0.5 % (0-4); Lymphocytes # 1.3 K/mcL (0.6-4.6); Lymphocytes % 10.1 %; Mean Corpuscular HGB Conc 32.4 g/dL (31.6-35.5); Mean Corpuscular Hemoglobin 27.1 pg (28.0-33.3); Mean Corpuscular Volume 83.9 fL (83.0-100.0); Mean Platelet Volume 10.9 fL (9.4-12.4); Monocytes % 7.3 %; Neutrophils # 10.3 K/mcL (1.6-8.9); Platelet Count 237 K/mcL (140-400); Red Blood Count 4.46 M/mcL (4.19-5.50); Red Cell Distribution Width 16.1 % (11.5-14.5); Segmented Neutrophils % 79.1 %
[2018-03-22 08:46] LABS: INR 1.2; Prothrombin Time 13.4 Seconds (9.4-12.1)
[2018-03-22 08:49] LABS: Activated Partial Thrombo Time 32.9 Seconds (26.0-36.0)
[2018-03-22 08:52] LABS: Troponin I < 0.03 ng/mL (< 0.04)
[2018-03-22 09:08] LABS: Thyroid Stimulating Hormone 2.003 mcIU/mL (0.340-5.600)
--- NOTE | 2018-03-22 09:25 | Emergency Department Note ---
Disposition Clinical Impression: Palpitations, A-fib Disposition: Admitted As Inpatient Condition: Fair Referrals: Colin Mancini MD [Non-Partnered Physician] - Forms: ED Satisfaction Letter Time of Disposition: 12:05 General Adult HPI - General Chief complaint: ED Arrhythmia/Palpitations Stated complaint: "afib sent by [facility]" Time Seen by Provider: 03/22/18 08:00 Source: patient Limitations: no limitations - History of Present Illness Pain Scale: 0 - Related Data Home Medications Medication Instructions Recorded Confirmed FLUoxetine HCl [Prozac] 20 mg PO DAILY 07/24/15 02/21/18 Lisinopril [Zestril] 20 mg PO DAILY 07/24/15 02/21/18 Simvastatin [Zocor] 20 mg PO HS 07/24/15 02/21/18 Carvedilol [Coreg] 37.5 mg PO BID 10/19/15 02/21/18 Digoxin [Lanoxin] 0.125 mg PO DAILY 10/19/15 02/21/18 Diltiazem HCl [Cardizem LA] 120 mg PO DAILY 10/19/15 02/21/18 Furosemide [Lasix] 20 mg PO DAILY 10/19/15 02/21/18 Multivitamin/Iron/Folic Acid 1 each PO DAILY 10/19/15 02/21/18 [Centrum Complete Multivit Tab] Sitagliptin Phosphate [Januvia] 50 mg PO DAILY 06/23/16 02/21/18 Dabigatran [Pradaxa] 150 mg PO BID 09/06/16 02/21/18 Mupirocin [Bactroban Oint] 1 appl TP DAILY 09/06/16 02/21/18 Oxybutynin [Ditropan] 5 mg PO DAILY 09/06/16 02/21/18 Iron Polysaccharide Complex 150 mg PO DAILY 02/21/18 02/21/18 [Ferrex 150] Potassium Chloride [K-Tab ER] 10 meq PO DAILY 02/21/18 02/21/18 risperiDONE [RisperDAL] 3 mg PO DAILY 02/21/18 02/21/18 Allergies Allergy/AdvReac Type Severity Reaction Status Date / Time cephalexin [From Keflex] Allergy Rash Verified 02/21/18 12:21 Past Medical History - Past Medical History Medical history: Reports: atrial fibrillation, cardiomyopathy, CHF, coronary artery disease, diabetes, hypertension, other Surgical history: Reports: cholecystectomy Psychiatric history: Reports: depression, other - Social History Smoking Status: Never smoker Smokeless Tobacco Status: No Alcohol use: Reports: none Drug use: Reports: none Physical Exam - General Limitations: no limitations General appearance: alert, in no apparent distress Course Vital Signs Temperature 98.2 F 03/22/18 08:00 Pulse Rate 94 03/22/18 08:00 Respiratory Rate 18 03/22/18 08:00 Blood Pressure 158/112 03/22/18 08:00 O2 Sat by Pulse Oximetry 96 03/22/18 08:00 Temperature 98.2 F 03/22/18 08:23 Pulse Rate 106 03/22/18 10:44 Respiratory Rate 16 03/22/18 10:44 Blood Pressure 145/120 03/22/18 10:44 O2 Sat by Pulse Oximetry 96 03/22/18 10:44 Oxygen Delivery Oxygen Delivery Room Air Medical Decision Making - Lab Data Result diagrams: 03/22/18 08:20 03/22/18 09:54 Lab Results 03/22/18 03/22/18 03/22/18 Range/Units 08:20 08:20 08:20 WBC 13.0 H (4.3-11.1) K/mcL RBC 4.46 (4.19-5.50) M/mcL Hgb 12.1 L (12.9-16.9) g/dL Hct 37.4 L (37.5-50.1) % MCV 83.9 (83.0-100.0) fL MCH 27.1 L (28.0-33.3) pg MCHC 32.4 (31.6-35.5) g/dL RDW 16.1 H (11.5-14.5) % Plt Count 237 (140-400) K/mcL MPV 10.9 (9.4-12.4) fL Immature Gran % 0.5 (0-4) % Seg Neutrophils % 79.1 % Lymphocytes % 10.1 % Monocytes % 7.3 % Eosinophils % 2.2 % Basophils % 0.8 % Neutrophils # 10.3 H (1.6-8.9) K/mcL Lymphocytes # 1.3 (0.6-4.6) K/mcL Monocytes # 1.0 (0.0-1.3) K/mcL Eosinophils # 0.3 (0.0-0.6) K/mcL Basophils # 0.1 (0.0-0.2) K/mcL PT 13.4 H (9.4-12.1) Seconds INR 1.2 APTT 32.9 (26.0-36.0) Seconds D-Dimer 972 H (0-500) ng/mLFEU Sodium TNP Potassium TNP Chloride TNP Carbon Dioxide TNP BUN TNP Creatinine TNP Est GFR ( Amer) TNP Est GFR (Non-Af Amer) TNP BUN/Creatinine Ratio TNP Glucose TNP Calculated Osmolality TNP Lactic Acid (0.5-2.2) mmol/L Calcium TNP Troponin I < 0.03 (< 0.04) ng/mL TSH 2.003 (0.340-5.600) mcIU/mL Urine Color (Yellow) Urine Clarity (Clear) Urine pH (5.0-8.0) pH Units Ur Specific [place] (1.010-1.025) Urine Protein (Neg-Trace) mg/dL Urine Glucose (UA) (Normal) mg/dL Urine Ketones (Negative) mg/dL Urine Blood (Negative) Urine Nitrite (Negative) Urine Bilirubin (Negative) Urine Urobilinogen (Normal) mg/dL Ur Leukocyte Esterase (Negative) Urine Microscopic RBC (0-3) per hpf Urine Microscopic WBC (0-3) per hpf Ur Squamous Epith Cells (None-Few) per lpf Calcium Oxalate Crystal Urine Bacteria (None-Few) per hpf Hyaline Casts (None-Few) per lpf Urine Yeast (None Seen) per hpf Ur Culture Indicated? (NO) Digoxin (0.8-2.0) ng/mL 03/22/18 03/22/18 03/22/18 Range/Units 08:36 08:36 09:20 WBC (4.3-11.1) K/mcL RBC (4.19-5.50) M/mcL Hgb (12.9-16.9) g/dL Hct (37.5-50.1) % MCV (83.0-100.0) fL MCH (28.0-33.3) pg MCHC (31.6-35.5) g/dL RDW (11.5-14.5) % Plt Count (140-400) K/mcL MPV (9.4-12.4) fL Immature Gran % (0-4) % Seg Neutrophils % % Lymphocytes % % Monocytes % % Eosinophils % % Basophils % % Neutrophils # (1.6-8.9) K/mcL Lymphocytes # (0.6-4.6) K/mcL Monocytes # (0.0-1.3) K/mcL Eosinophils # (0.0-0.6) K/mcL Basophils # (0.0-0.2) K/mcL PT (9.4-12.1) Seconds INR APTT (26.0-36.0) Seconds D-Dimer (0-500) ng/mLFEU Sodium 140 Potassium 4.0 Chloride 108 H Carbon Dioxide 22 L BUN 16 Creatinine 0.84 Est GFR ( Amer) > 60 Est GFR (Non-Af Amer) > 60 BUN/Creatinine Ratio 19 Glucose 114 H Calculated Osmolality 292 Lactic Acid 1.2 (0.5-2.2) mmol/L Calcium 8.5 L Troponin I (< 0.04) ng/mL TSH (0.340-5.600) mcIU/mL Urine Color Yellow (Yellow) Urine Clarity Clear (Clear) Urine pH 6.0 (5.0-8.0) pH Units Ur Specific [place] 1.027 H (1.010-1.025) Urine Protein 30 H (Neg-Trace) mg/dL Urine Glucose (UA) Normal (Normal) mg/dL Urine Ketones Negative (Negative) mg/dL Urine Blood Negative (Negative) Urine Nitrite Negative (Negative) Urine Bilirubin Negative (Negative) Urine Urobilinogen Normal (Normal) mg/dL Ur Leukocyte Esterase Small H (Negative) Urine Microscopic RBC 0-3 (0-3) per hpf Urine Microscopic WBC 5-15 H (0-3) per hpf Ur Squamous Epith Cells Many H (None-Few) per lpf Calcium Oxalate Crystal Present Urine Bacteria None Seen (None-Few) per hpf Hyaline Casts Few (None-Few) per lpf Urine Yeast Few H (None Seen) per hpf Ur Culture Indicated? NO. A (NO) Digoxin (0.8-2.0) ng/mL 03/22/18 Range/Units 09:54 WBC (4.3-11.1) K/mcL RBC (4.19-5.50) M/mcL Hgb (12.9-16.9) g/dL Hct (37.5-50.1) % MCV (83.0-100.0) fL MCH (28.0-33.3) pg MCHC (31.6-35.5) g/dL RDW (11.5-14.5) % Plt Count (140-400) K/mcL MPV (9.4-12.4) fL Immature Gran % (0-4) % Seg Neutrophils % % Lymphocytes % % Monocytes % % Eosinophils % % Basophils % % Neutrophils # (1.6-8.9) K/mcL Lymphocytes # (0.6-4.6) K/mcL Monocytes # (0.0-1.3) K/mcL Eosinophils # (0.0-0.6) K/mcL Basophils # (0.0-0.2) K/mcL PT (9.4-12.1) Seconds INR APTT (26.0-36.0) Seconds D-Dimer (0-500) ng/mLFEU Sodium Potassium 3.9 Chloride Carbon Dioxide BUN Creatinine Est GFR ( Amer) Est GFR (Non-Af Amer) BUN/Creatinine Ratio Glucose Calculated Osmolality Lactic Acid (0.5-2.2) mmol/L Calcium Troponin I (< 0.04) ng/mL TSH (0.340-5.600) mcIU/mL Urine Color (Yellow) Urine Clarity (Clear) Urine pH (5.0-8.0) pH Units Ur Specific [place] (1.010-1.025) Urine Protein (Neg-Trace) mg/dL Urine Glucose (UA) (Normal) mg/dL Urine Ketones (Negative) mg/dL Urine Blood (Negative) Urine Nitrite (Negative) Urine Bilirubin (Negative) Urine Urobilinogen (Normal) mg/dL Ur Leukocyte Esterase (Negative) Urine Microscopic RBC (0-3) per hpf Urine Microscopic WBC (0-3) per hpf Ur Squamous Epith Cells (None-Few) per lpf Calcium Oxalate Crystal Urine Bacteria (None-Few) per hpf Hyaline Casts (None-Few) per lpf Urine Yeast (None Seen) per hpf Ur Culture Indicated? (NO) Digoxin < 0.3 L (0.8-2.0) ng/mL Attestation Statement - Attestation Attestation: I, Manav Musa DO, examined this patient [id number] and my medical decision-making was reviewed with Dr. Albert Amanda, Resident Physician. I agree with the documented findings, disposition and treatment plan as described except to the extent set forth below. Please see my progress notes for details. 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 Patient is a long-standing history of atrial fibrillation as well as multiple medical issues. He was seen in the outside facility today because of increased work of breathing shortness of breath and palpitations in his chest when he was walking or ambulating. Patient denies any trauma or injury. He has been taking all his medications as they are prescribed. Denies any recent fevers or chills nausea vomiting or diarrhea headache or vision change. Patient has been having shortness of breath chest pain and palpitations. Vital signs are reviewed and the patient is slightly tachycardic at 106-110. His blood pressure and other vital signs are stable. On physical exam the patient sitting upright in the bed his conversational he does not show any acute signs of conversational dyspnea. His lungs are clear his heart is a irregular and consistent with atrial fibrillation. According patient's medical records he is on digoxin as well as Cardizem. His lungs are clear abdomen is soft nontender nondistended he does have a pale presentation to his skin denies any burning with urination foul- smelling or diarrhea. His abdomen is otherwise benign no CVA tenderness no guarding no rigidity and no peritoneal-like symptoms. He has no pitting edema in the lower extremities he is ambulatory but with some respiratory distress and palpitations. Patient is concerning for possible cardiac deterioration secondary to long-standing atrial fibrillation. He does have what appears to be symptomatic atrial fibrillation with stable vital signs. He will be given a single dose of oral rapid release Cardizem here in the emergency room to help with the heart rate considering his blood pressure that is fine. He also be evaluated for other potential etiologies including pulmonary emboli, infection, OR abnormalities, fluid overload or other etiologies. Disposition will most likely be admission the hospital for further evaluation and management. Patient is otherwise stable at this point. See detailed documentation the physical exam, medical intervention, medical decision-making,, disposition will be completed in the resident physician's note. See detailed documentation of physical exam there. No critical care by the patient's treatment course this time. 0915 Initial chemistry panel was hemolyzed the patient's potassium was elevated but they rejoin not emaciated this is consistent. Patient otherwise has no acute EKG abnormalities noted on review outside of the atrial fibrillation. Patient has remained stable. Disposition pending treatment course. D-dimer is elevated and chest x-ray is negative. Consideration for possible CT angiography will be completed 1100 Patient's digoxin level is low. We will contact the conservation technician to confirm that is taking his medication and determine if we need to do a loading dose of digoxin here today. Patient Is otherwise clinically stable. 1125 CT imaging is unremarkable except for vascular congestion. Patient has no known history of CHF but because atrial fibrillation the exertional dyspnea and discomfort it would be consistent with her presenting issue. No signs of pulmonary emboli. Patient was discussed with the hospitalist Dr. santos no other issues noted this time. Patient otherwise clinically stable will be admitted for further management and evaluation.
[2018-03-22 09:27] LABS: Bilirubin,Urine Negative (Negative); Blood,Urine Negative (Negative); Clarity,Urine Clear (Clear); Color,Urine Yellow (Yellow); Glucose,Urine (UA) Normal (Normal); Ketones,Urine Negative (Negative); Leukocyte Esterase,Urine Small (Negative); Nitrite,Urine Negative (Negative); Protein,Urine 30 mg/dL (Neg-Trace); Specific Gravity,Urine 1.027 (1.010-1.025); Urobilinogen,Urine Normal (Normal)
[2018-03-22 09:29] LABS: Bacteria,Urine None Seen per hpf (None-Few); Hyaline Casts,Urine Few per lpf (None-Few); RBC,Urine 0-3 per hpf (0-3); Squamous Epithelial Cell,Urine Many per lpf (None-Few)
[2018-03-22 09:33] LABS: BUN/Creatinine Ratio 19 (6-26); Blood Urea Nitrogen 16 mg/dL (6-20); Calcium 8.5 mg/dL (8.6-10.3); Carbon Dioxide 22 mEq/L (23-29); Chloride 108 mEq/L (98-107); Glucose 114 mg/dL (70-105); Osmolality,Calculated 292 (280-300); Sodium 140 mEq/L (136-145); eGFR For African Americans > 60 (> 60); eGFR For Non-African Americans > 60 (> 60)
[2018-03-22 09:37] LABS: Calcium Oxalate Crystals,Urine Present; Yeast,Urine Few per hpf (None Seen)
[2018-03-22] MEDS ORDERED: Isovue-370 500 ML INFUS..BTL IV ONE (09:41)
[2018-03-22] MEDS ORDERED: 0.9 % Sodium Chloride 1,000 ML IVC STA (10:11)
[2018-03-22 10:22] LABS: Potassium 3.9 mEq/L (3.5-5.1)
[2018-03-22 10:59] LABS: Digoxin < 0.3 ng/mL (0.8-2.0)
[2018-03-22] MEDS ORDERED: Naloxone 0.4 MG/ML INJ IVP PRN (12:29)
--- NOTE | 2018-03-22 12:40 | Internal Med History&Physical ---
Date of Encounter: 03/22/18 Time of Encounter: 12:38 Internal Medicine - H&P: HPI Chief complaint: Afib with palpitations Admitted From: Home Plans for Post Hospital Care: Home History of present illness: Mr. Park is a 57 year old male with hx of hypertension, type 2 diabetes mellitus, A. fib, and heart failure. Patient indicated he was at his cardiology appointment today as he was going to have a heart monitor placed. He indicated he had been having chest palpitations. Upon arrival to the office patient was found to be in A. fib with RVR heart rate in the 140s. The patient was given 30 mg Cardizem last activity and rate slowed to 100 bpm. Cardiology was consulted in the ED. The patient has a chronic hx of AFIB. CXR showed a stable chest without focal airway dx. Chronic interstitial changes noted. D- dimer was elevated at 975. PT A chest showed pulmonary vascular congestion, no pneumonia, small left pleural effusion with atelectasis, cardiomegaly present, ? sarcoidosis.No pulm embolus was seen. EKG showed A. fib rate of 107 with right ventricular hypertrophy. Same as the February 2018. WBC is 13.0, patient tachy on admission. Blood cultures completed. Lactic is 1.2 Past Med Surg Social Fam HX - Past Medical History Medical history: atrial fibrillation, cardiomyopathy, CHF, coronary artery disease, diabetes, hypertension, other Additional medical history: Type II Diabetic Psychiatric history: depression, other - Past Surgical History Surgical History: cholecystectomy - Social History Smoking Status: Never smoker Smokeless Tobacco Status: No Alcohol use: none Drug use: none - Family History Mother Family Member Ethnicity: Non- Living Status: Hx Family Cardiac Disorders: No Hx Family Respiratory Disorders: No Hx Family Cancer: No Hx Family GI Disorders: No Hx Family Endocrine Disorder: Yes (DM) Hx Family Neuromuscular Disorders: No Hx Family Neurologic Disorders: No Hx Family HEENT Disorders: No Hx Family Autoimmune Disorders: No Father Family Member Ethnicity: Non- Living Status: Hx Family Cardiac Disorders: No Hx Family Respiratory Disorders: No Hx Family Cancer: Yes (LUNG CANCER) Hx Family GI Disorders: No Hx Family Endocrine Disorder: Yes Hx Family Neuromuscular Disorders: No Hx Family Neurologic Disorders: No Hx Family HEENT Disorders: No Hx Family Autoimmune Disorders: No Internal Medicine - H&P: Meds Carvedilol [Coreg] 37.5 mg PO BIDWM 03/22/18 [History] Diltiazem CD (24hr) [Cardizem CD] 120 mg PO DAILY 03/22/18 [History] FLUoxetine HCl [PROzac] 20 mg PO DAILY 03/22/18 [History] Oxybutynin [Ditropan] 2.5 mg PO BID 03/22/18 [History] Simvastatin [Zocor] 10 mg PO DAILY 03/22/18 [History] risperiDONE [Risperdal] 3 mg PO BID 03/22/18 [History] 3 Allergy/AdvReac Type Severity Reaction Status Date / Time cephalexin [From Keflex] Allergy Rash Verified 03/22/18 12:06 All Systems PM: A 10-system review of systems was performed and is negative for pertinent findings except as documented above in the HPI. - Constitutional Constitutional: no chills, no fever(s), no night sweats - EENT Eyes: no change in vision, no discharge, no pain, no photophobia Ears: no ear discharge, no ear pain, no tinnitus Nose, mouth and throat: no dysphagia, no nasal discharge, no neck pain, no sore throat - Cardiovascular Cardiovascular ROS IM: palpitations, no chest pain, no diaphoresis, no dyspnea, no lightheadedness, no syncope - Respiratory Respiratory: no cough, no dyspnea, no wheezing, no excessive phlegm production - Gastrointestinal Gastrointestinal: no abdominal pain, no diarrhea, no hematemesis, no hematochezia, no melena, no nausea, no vomiting - Musculoskeletal Musculoskeletal ROS IM: no numbness, no tingling - Integumentary Integumentary IM: no rash, no unusual bruising - Neurological Neurological ROS: no confusion, no convulsions, no focal weakness, no numbness, no tingling, no tremor(s) - Psychiatric Psychiatric: other (OCD) - Hematologic/Lymphatic Hematologic/Lymphatic: no easy bruising - Constitutional Vitals: Temp Pulse Resp BP Pulse Ox 98.2 F 106 16 145/120 96 03/22/18 08:23 03/22/18 10:44 03/22/18 10:44 03/22/18 10:44 03/22/18 10:44 General appearance: Present: A&O X 3, answers questions appropriately (Patient is slow to respond) - Head Head exam: Present: atraumatic, normocephalic - Eye Eye exam: Present: PERRL, conjuntiva pink, sclera anicteric Pupils: Present: PERRL - Neck Neck exam general surgery: Present: supple, trachea midline. Absent: lymphadenopathy - Respiratory Respiratory exam: Present: decreased breath sounds. Absent: accessory muscle use, rales, rhonchi, wheezes - Cardiovascular Cardiovascular exam: Present: RRR, +S1, +S2. Absent: diastolic murmur, gallop, rubs, systolic murmur - GI/Abdominal GI/Abdominal exam: Present: normal bowel sounds, soft, no peritoneal signs. Absent: distended, tenderness - Extremities Exam Extremities exam: Present: warm, radial pulses palpable and symmetrical. Absent : calf tenderness, cyanotic, pedal edema - Neurological Exam Neurological exam: Present: CN II-XII intact, oriented X3, no focal deficits. Absent: pronater drift, facial droop, speech deficit - Skin Skin exam: Present: dry, intact Internal Med - H&P Results - Labs CBC & Chem 7: 03/22/18 08:20 03/22/18 09:54 Labs: Short CBC 03/22/18 Range/Units 08:20 WBC 13.0 H (4.3-11.1) K/mcL Hgb 12.1 L (12.9-16.9) g/dL Hct 37.4 L (37.5-50.1) % Plt Count 237 (140-400) K/mcL Neutrophils # 10.3 H (1.6-8.9) K/mcL BMP 03/22/18 03/22/18 03/22/18 08:20 08:36 09:54 Sodium TNP 140 Potassium TNP 4.0 3.9 Chloride TNP 108 H Carbon Dioxide TNP 22 L BUN TNP 16 Creatinine TNP 0.84 Glucose TNP 114 H Calcium TNP 8.5 L Cardiac Enzymes 03/22/18 Range/Units 08:20 Troponin I < 0.03 (< 0.04) ng/mL Urine 03/22/18 Range/Units 09:20 Urine Color Yellow (Yellow) Urine Clarity Clear (Clear) Urine pH 6.0 (5.0-8.0) pH Units Ur Specific [place] 1.027 H (1.010-1.025) Urine Protein 30 H (Neg-Trace) mg/dL Urine Glucose (UA) Normal (Normal) mg/dL - Impressions ITS Impressions Chest X-Ray 03/22/18 08:18 IMPRESSION: Stable chest without focal airspace disease and chronic findings as described. D/ / Lonnie Madrid MD / Lonnie Madrid MD Interpreting Provider: Lonnie Madrid MD Chest CTA 03/22/18 09:41 IMPRESSION: Vascular prominence and ground-glass appearance in the lungs consistent with pulmonary vascular congestion. No evident pneumonia. Very small left pleural effusion with atelectasis. Slight cardiomegaly. No evidence of pulmonary embolism . Bilateral hilar and mediastinal adenopathy suggestive of sarcoidosis. No other adenopathy identified. Spleen appears normal in size. D/ / Rashad Ansari MD / Rashad Ansari MD Interpreting Provider: Rashad Ansari MD - Assessment and plan (1) Atrial fibrillation with RVR Current Visit: Yes Status: Chronic Assessment and plan: Cardiac monitoring Cardiology consult Continue home med-cardizem daily Start hep sq q12h (2) Palpitations Current Visit: Yes Status: Acute Assessment and plan: Same as above (3) Hypertension Current Visit: No Status: Chronic Assessment and plan: Bp is uncontrolled Continue home medications: Coreg and oral Cardizem Qualifiers: Hypertension type: essential hypertension Qualified Code(s): I10 - Essential (primary) hypertension (4) Type 2 diabetes mellitus Current Visit: No Status: Chronic Assessment and plan: Blood glucose is controlled @ 114. 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 Blood cultures completed. Qualifiers: Leukocytosis type: unspecified Qualified Code(s): D72.829 - Elevated white blood cell count, unspecified - Time Spent With Patient Total time spent is greater than 50% in coordination of care (as documented) at patient's floor/unit and/or counseling patient: less than 15 minutes
[2018-03-22] MEDS ORDERED: Dextrose Gel 15 GM/37.5 ML TUBE PO PRN ×2 (12:54)
[2018-03-22] MEDS ORDERED: D5% in Water 1,000 ML IVC PRN (12:54)
[2018-03-22] MEDS ORDERED: *HR* Dextrose 50 % in Water (Syg) 50 ML SYRINGE IVP PRN (12:54)
[2018-03-22 13:18] LABS: Magnesium 1.8 mg/dL (1.6-2.6)
--- NOTE | 2018-03-22 13:23 | Cardiology Consult Note ---
<Bryson Torrez R - Last Filed: 03/22/18 13:31> Date of Encounter: 03/22/18 Time of Encounter: 13:16 Assessment and Plan (1) Atrial fibrillation with RVR Current Visit: Yes Status: Chronic Known A-Fib, diagnosed in 2015, persistent. Recently seen by cardiology as outpt and Cardizem CD 120mg daily was stopped on 03/12/18 due to dizziness. Holter was ordered. Presented for Holter in A-Fib RVR, HR up to 130s complaining of chest pressure and palpitations. Had not had any morning meds at [facility]. In ED, given 30mg short acting cardizem with HR improvement. On Coreg--dose unclear. Cardiology outpt note states 25mg BID, ED visit states 37.5mg BID. BP/HR currently elevated. Can continue Coreg 37.5mg BID as ordered and will monitor BP/HR. Will resume Cardizem CD 120 daily since it was stopped 2 weeks ago. Of note, pt states he still experienced intermittent dizziness after stopping Cardizem. Recent TTE EF 50%. [id number] 2 (HTN, DM). Previously on Pradaxa, but was stopped after syncopal event/fall 02/2018 where pt sustained a skull fx and was transferred to [facility]. Will discuss with Dr. Huff. Would recommend at least 81mg ASA if no contraindication. High falls risk given recent syncope/fall 02/2018 and he fell out of his wheelchair this AM in cardiopulm. Will plan for Holter monitor to be applied on d/c. (2) Chest pressure Current Visit: Yes Status: Acute Mild-moderate CAD on [facility] in 2012. Chest pressure this AM in setting of A-Fib RVR. Initial troponin negative. Trend troponins. Recent TTE EF preserved. If troponins remain negative, can consider outpt stress test. Discussion w patient/family: The assessment and plan as outlined above was discussed with the patient and/or family members who expressed understanding and agreement. All questions were answered. Thank you for involving us in the care of your patient. Please call with any questions. I will discuss all the above with Dr. Huff and make changes as necessary. History of Present Illness Consult date: 03/22/18 Consult reason: A-Fib RVR Chief complaint: palpitations, chest pressure History of present illness: Mr. Park is a 57 year old male with PMH of HTN, type 2 diabetes mellitus, Chronic A. fib, and prior NICMP since recovered. He was previously anticoagulated on Pradaxa, stopped 02/2018 after he reportedly had a syncopal event, fell, sustained a skull fx and was transferred to [facility]. He was recently seen by Dr. Cullen 03/12/18. At that time he complained of Dizziness. Cardizem CD 120mg daily was stopped and a holter monitor was ordered. Pt presented as outpt this AM from [facility] for his Holter and was complaining of chest pressure and palpitations, fell out of his wheelchair. His HR was up to 130s and he was send to ED for further evaluation. Cardiology consulted for further recs. The patient was given 30 mg PO short acting Cardizem in the ED which slowed his HR to ~100. D- dimer , chest CTA showed pulmonary vascular congestion, small left pleural effusion. Negative for PE. Pt is also on Coreg 37.5mg BID. Per pt, intermittent dizziness has persisted since stopping Cardizem. He had not received any AM meds at halfway prior to coming for holter this AM. Pt currently chest pain free, denies any symptoms presently. Prior CV testing: Echo 02/21/18: LVEF 50-55%. Indeterminate diastolic function. Mildly dilated left ventricle. Normal right ventricular structure and function. Mild mitral regurgitation. No pulmonary hypertension. [facility] 07/01/13: Impressions: There is moderate to severe LV Dysfunction EF 30%. Mild-moderate atherosclerotic coronary artery disease. Past Med Surg Social Fam HX - Past Medical History Medical history: atrial fibrillation, cardiomyopathy, CHF, coronary artery disease, diabetes, hypertension, other Additional medical history: Type II Diabetic Psychiatric history: depression, other - Past Surgical History Surgical History: cholecystectomy - Social History Smoking Status: Never smoker Smokeless Tobacco Status: No Alcohol use: none Drug use: none - Family History Mother Family Member Ethnicity: Non- Living Status: Hx Family Cardiac Disorders: No Hx Family Respiratory Disorders: No Hx Family Cancer: No Hx Family GI Disorders: No Hx Family Endocrine Disorder: Yes (DM) Hx Family Neuromuscular Disorders: No Hx Family Neurologic Disorders: No Hx Family HEENT Disorders: No Hx Family Autoimmune Disorders: No Father Family Member Ethnicity: Non- Living Status: Hx Family Cardiac Disorders: No Hx Family Respiratory Disorders: No Hx Family Cancer: Yes (LUNG CANCER) Hx Family GI Disorders: No Hx Family Endocrine Disorder: Yes Hx Family Neuromuscular Disorders: No Hx Family Neurologic Disorders: No Hx Family HEENT Disorders: No Hx Family Autoimmune Disorders: No Medications and Allergies Carvedilol [Coreg] 37.5 mg PO BIDWM 03/22/18 [History] FLUoxetine HCl [Prozac] 20 mg PO DAILY 03/22/18 [History] Oxybutynin [Ditropan] 2.5 mg PO BID 03/22/18 [History] Simvastatin [Zocor] 10 mg PO DAILY 03/22/18 [History] risperiDONE [Risperdal] 3 mg PO BID 03/22/18 [History] Aspirin Enteric Coated [Aspirin EC] 81 mg PO DAILY #30 tablet.dr 03/23/18 [Rx] Diltiazem CD (24hr) [Cardizem CD] 240 mg PO DAILY #60 cap.er.24h 03/23/18 [Rx] 3 Allergy/AdvReac Type Severity Reaction Status Date / Time cephalexin [From Keflex] Allergy Rash Verified 03/22/18 12:06 All Systems Review: The remainder of the systems were reviewed and are negative - Cardiovascular Cardiovascular: as per HPI, chest pain at rest, lightheadedness, palpitations - Neurological Neurological: dizziness Physical Examination Vital Signs Temp Pulse Resp BP Pulse Ox 03/22/18 13:18 18 154/116 03/22/18 10:44 106 16 145/120 96 03/22/18 09:33 102 18 138/109 95 03/22/18 08:27 95 03/22/18 08:23 98.2 F 111 18 163/118 93 03/22/18 08:00 98.2 F 94 18 158/112 96 Intake and Output 03/21/18 03/22/18 03/22/18 23:59 07:59 15:59 Intake Total 1000 / 1000 Balance 1000 / 1000 Intake: IV Fluids 1000 / 1000 0.9 % Sodium Chloride 1,000 ML 1000 / 1000 @ Wide Open IVC .Q0M ONE Rx#: [id number] Other: Weight 114.577 kg Patient Weight 03/22/18 23:59 Weight 114.577 kg General: Conversant, No Apparent Distress HEENT: Atraumatic, Normocephaly, Mucus Membranes Moist Neck: No JVD, Normal carotid pulses Cardiac: Other (irregularly irregular) Lungs: Other (diminished) Neuro: Alert and responsive, No focal deficits noted Abdomen: Soft, Non-Tender Skin: No rashes noted on visualized skin Musculoskeletal: No Chest Wall Tenderness Extremities: No Clubbing, No Cyanosis, No Edema, Normal Pulses Results 03/22/18 08:20 03/22/18 09:54 Short CBC 03/22/18 Range/Units 08:20 WBC 13.0 H (4.3-11.1) K/mcL Hgb 12.1 L (12.9-16.9) g/dL Hct 37.4 L (37.5-50.1) % Plt Count 237 (140-400) K/mcL Neutrophils # 10.3 H (1.6-8.9) K/mcL BMP 03/22/18 03/22/18 03/22/18 Range/Units 09:54 08:36 08:20 Sodium 140 TNP Potassium 3.9 4.0 TNP Chloride 108 H TNP Carbon Dioxide 22 L TNP BUN 16 TNP Creatinine 0.84 TNP Glucose 114 H TNP Calcium 8.5 L TNP Cardiac Enzymes 03/22/18 Range/Units 08:20 Troponin I < 0.03 (< 0.04) ng/mL Urine 03/22/18 Range/Units 09:20 Urine Color Yellow (Yellow) Urine Clarity Clear (Clear) Urine pH 6.0 (5.0-8.0) pH Units Ur Specific [place] 1.027 H (1.010-1.025) Urine Protein 30 H (Neg-Trace) mg/dL Urine Glucose (UA) Normal (Normal) mg/dL Impressions Chest X-Ray 03/22/18 08:18 IMPRESSION: Stable chest without focal airspace disease and chronic findings as described. D/ / Lonnie Madrid MD / Lonnie Madrid MD Interpreting Provider: Lonnie Madrid MD Chest CTA 03/22/18 09:41 IMPRESSION: Vascular prominence and ground-glass appearance in the lungs consistent with pulmonary vascular congestion. No evident pneumonia. Very small left pleural effusion with atelectasis. Slight cardiomegaly. No evidence of pulmonary embolism . Bilateral hilar and mediastinal adenopathy suggestive of sarcoidosis. No other adenopathy identified. Spleen appears normal in size. D/ / Rashad Ansari MD / Rashad Ansari MD Interpreting Provider: Rashad Ansari MD Active Medications Carvedilol (Coreg) 37.5 mg PO BIDWM SVETLANA PRN Reason: Protocol Stop: 09/21/18 17:01 Dextrose/Water (Dextrose 50% (Syg)) 25 ml IVP AD PRN PRN Reason: Hypoglycemia Stop: 09/21/18 12:55 Diltiazem HCl (Cardizem Cd) 120 mg PO DAILY SVETLANA Stop: 09/22/18 09:01 Fluoxetine HCl (Prozac) 20 mg PO DAILY SVETLANA PRN Reason: Protocol Stop: 09/22/18 09:01 Glucagon (Glucagen) 1 mg IM ONCE PRN PRN Reason: Hypoglycemia Stop: 09/21/18 12:55 Glucose (Gluctose) 15 gm PO ONCE PRN PRN Reason: Hypoglycemia Stop: 09/21/18 12:55 Glucose (Gluctose) 30 gm PO ONCE PRN PRN Reason: Hypoglycemia Stop: 09/21/18 12:55 Heparin Sodium (Porcine) (Heparin) 5,000 unit SQ Q12H SVETLANA Stop: 09/21/18 18:01 Sodium Chloride (0.9 % Sodium Chloride) 1,000 mls @ 125 mls/hr IVC .Q8H STA Stop: 03/22/18 18:10 Last Admin: 03/22/18 12:14 Dose: 125 mls/hr Dextrose (Dextrose 5%) 1,000 mls @ 100 mls/hr IVC .Q10H PRN PRN Reason: HYPOGLYCEMIA Stop: 09/21/18 12:55 Insulin Human Lispro (Humalog) 0 units SQ TIDAC SVETLANA PRN Reason: Protocol Stop: 09/21/18 16:31 Insulin Human Lispro (Humalog) 0 units SQ HS SVETLANA PRN Reason: Protocol Stop: 09/21/18 21:01 Naloxone HCl (Narcan) 0.4 mg IVP Q2MIN PRN PRN Reason: SEE COMMENTS Stop: 09/21/18 12:30 Oxybutynin Chloride (Ditropan) 2.5 mg PO BID SVETLANA PRN Reason: Protocol Stop: 09/21/18 21:01 Risperidone (Risperdal) 3 mg PO BID SVETLANA Stop: 09/21/18 21:01 Simvastatin (Zocor) 10 mg PO HS SVETLANA Stop: 09/21/18 21:01 - Imaging and Cardiology Echo: report reviewed - EKG Interpretation EKG results cardiology: personally reviewed Consult Discharge Plan - Plan Instructions: Atrial Fibrillation (DC), Diabetes Mellitus Type 2 in Adults (DC) Referrals: Colin Mancini MD [Primary Care Provider] - (patient is from [place]...) Any Cullen DO [Partnered Physician] - (In one to 2 weeks) Prescriptions: Aspirin Enteric Coated [Aspirin EC] 81 mg PO DAILY #30 tablet.dr Morristiasimon CD (24hr) [Cardizem CD] 240 mg PO DAILY #60 cap.er.24h <Aleksandr Huff - Last Filed: 03/23/18 14:43> Date of Encounter: 03/23/18 - Attending Attestation I have personally performed a face to face evaluation on this patient. I have reviewed and agree with the care plan. History and Exam by me shows: 57 YOM with h/o Afib recently taken off CCB for dizziness with holter revealing afib with RVR. Agree with restarting CCB Agree with ASA only due to muliple recent falls to be reassessed by primary cardiology as an OP Patient at higher risk for CVA on ASA only Assessment and Plan Discussion w patient/family: The assessment and plan as outlined above was discussed with the patient and/or family members who expressed understanding and agreement. All questions were answered. Thank you for involving us in the care of your patient. Please call with any questions. History of Present Illness History of present illness: Mr. Park is a 57 year old male All Systems Review: The remainder of the systems were reviewed and are negative Physical Examination Vital Signs, Last 4 Hours Temp Pulse Resp BP Pulse Ox 03/23/18 11:03 98.9 F 103 17 152/89 95 Results 03/23/18 04:35 03/23/18 04:35 Lab Results 03/23/18 03/23/18 04:35 04:35 WBC 11.8 H Hgb 10.8 L Hct 34.8 L Plt Count 238 Sodium 140 Potassium 3.9 Chloride 106 Carbon Dioxide 27 BUN 13 Creatinine 0.78 Glucose 115 H Calcium 8.4 L Troponin I < 0.03
[2018-03-22] MEDS: Diltiazem CD (24hr) 120 MG CAPSULE PO SCH (14:52)
[2018-03-22] MEDS: Insulin LISPRO 300 UNITS/3 ML VIAL SQ SCH (16:44)
[2018-03-22] MEDS: *HR* Heparin 5,000 UNIT/ML VIAL SQ SCH (16:45)
[2018-03-22] MEDS ORDERED: NON-FORMULARY MEDICATION 1 EACH EACH (Carvedilol [Carvedilol] 12.5 MG) PO SCH (21:00)
[2018-03-22] MEDS ORDERED: Insulin LISPRO 300 UNITS/3 ML VIAL SQ SCH (21:00)
[2018-03-22] MEDS ORDERED: OXYBUTYNIN CHLORIDE PO SCH (21:00)
[2018-03-22] MEDS: RisperiDAL 3 MG TABLET PO SCH (21:10)
[2018-03-23 05:03] LABS: Basophils # 0.1 K/mcL (0.0-0.2); Basophils % 0.6 %; Eosinophils # 0.4 K/mcL (0.0-0.6); Eosinophils % 3.1 %; Hematocrit 34.8 % (37.5-50.1); Hemoglobin 10.8 g/dL (12.9-16.9); Immature Granulocytes % 0.4 % (0-4); Lymphocytes # 1.4 K/mcL (0.6-4.6); Mean Corpuscular Hemoglobin 26.1 pg (28.0-33.3); Mean Corpuscular Volume 84.1 fL (83.0-100.0); Mean Platelet Volume 10.7 fL (9.4-12.4); Monocytes # 0.9 K/mcL (0.0-1.3); Monocytes % 7.4 %; Platelet Count 238 K/mcL (140-400); Red Blood Count 4.14 M/mcL (4.19-5.50); Red Cell Distribution Width 16.3 % (11.5-14.5); Segmented Neutrophils % 76.5 %
[2018-03-23] MEDS: Ipratropium/Albuterol Neb 3 ML IH SCH ×3 (05:23→15:10)
[2018-03-23] MEDS: *HR* Heparin 5,000 UNIT/ML VIAL SQ SCH (05:24)
[2018-03-23 05:26] LABS: Troponin I < 0.03 ng/mL (< 0.04)
[2018-03-23 05:27] LABS: BUN/Creatinine Ratio 17 (6-26); Blood Urea Nitrogen 13 mg/dL (6-20); Calcium 8.4 mg/dL (8.6-10.3); Carbon Dioxide 27 mEq/L (23-29); Chloride 106 mEq/L (98-107); Chol/HDL Ratio 4.2 (0-4.9); Cholesterol 105 mg/dL (< 200); Glucose 115 mg/dL (70-105); HDL Cholesterol 25 mg/dL (40-59); LDL Cholesterol,Calculated 66 mg/dL (0-99); Osmolality,Calculated 291 (280-300); Potassium 3.9 mEq/L (3.5-5.1); Sodium 140 mEq/L (136-145); Triglycerides 71 mg/dL (< 150); eGFR For African Americans > 60 (> 60); eGFR For Non-African Americans > 60 (> 60)
[2018-03-23] MEDS: Insulin LISPRO 300 UNITS/3 ML VIAL SQ SCH ×3 (08:39→16:45)
[2018-03-23] MEDS: RisperiDAL 3 MG TABLET PO SCH (08:56)
[2018-03-23] MEDS: Diltiazem CD (24hr) 120 MG CAPSULE PO SCH (08:56)
[2018-03-23] MEDS ORDERED: Diltiazem CD (24hr) 120 MG CAPSULE PO SCH (09:00)
[2018-03-23] MEDS ORDERED: FLUoxetine 20 MG CAPSULE PO SCH (09:00)
[2018-03-23] MEDS ORDERED: Diltiazem CD (24hr) 120 MG CAPSULE PO ONE (10:06)
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
[2018-03-23 11:03] VITALS: BP 152/89
[2018-03-23] MEDS ORDERED: Aspirin 81 MG TAB.CHEW PO SCH (11:30)
--- NOTE | 2018-03-23 13:21 | Event Note ---
Date of Encounter: 03/23/18 Time of Encounter: 13:18 - Cardiology Event Note HR currently 80s-90s at bedside, A-Fib now rate controlled s/p additional Cardizem dose. Recommend continuing increased Cardizem CD 240mg daily and Coreg 37.5mg BID for rate control. ASA only for anticoagulation given recent falls. Was on Lisinopril at [facility], not yet restarted. If additional BP control is needed , recommend restarting Lisinopril. Cardiology signing off. Reconsult PRN. Will coordinate outpt follow-up in 3-4 weeks. Will order for 48 hr holter to be applied at d/c.
--- NOTE | 2018-03-23 14:16 | Discharge Summary ---
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 He was evaluated by cardiology and his medications have been adjusted. He is now been placed on carvedilol 37.5 mg by mouth twice daily and Cardizem 240 mg by mouth daily. His heart rate is now better controlled. He is not on anticoagulation but has been placed on aspirin 81 mg by mouth daily Orders not resulted at time of discharge: Pending orders 03/23/18 13:21 ECG 48 holter monitor setup [ECG] Routine Date of Encounter: 03/23/18 Time of Encounter: 14:12 - Discharge Diagnosis (1) Atrial fibrillation with RVR Priority: Primary Status: Chronic (2) Hypertension Priority: Secondary Status: Chronic Qualifiers: Hypertension type: essential hypertension Qualified Code(s): I10 - Essential (primary) hypertension (3) Leukocytosis Priority: Secondary Status: Acute Qualifiers: Leukocytosis type: unspecified Qualified Code(s): D72.829 - Elevated white blood cell count, unspecified (4) Type 2 diabetes mellitus Priority: Secondary Status: Chronic Qualifiers: Diabetes mellitus prison insulin use: without long goods drier use Diabetes mellitus complication status: with kidney complications Diabetes mellitus complication detail: with other kidney complication Qualified Code(s): E11.29 - Type 2 diabetes mellitus with other diabetic kidney complication Hospital course: Mr. Park is a 57 year old male Patient with history of atrial fibrillation, type 2 diabetes, coronary artery disease, hypertension, cardiomyopathy was hospitalized here after he came to the ER from [facility] machine operator[facility] office for atrial fibrillation with RVR. He was evaluated by cardiology and his medications have been adjusted. He is now been placed on carvedilol 37.5 mg by mouth twice daily and Cardizem 240 mg by mouth daily. His heart rate is now better controlled. He is not on anticoagulation but has been placed on aspirin 81 mg by mouth daily. He should continue to take lisinopril for his hypertension. Patient also had chest pressure on presentation and cardiology recommends outpatient stress test which will be arranged to the clinic. Patient also had mild leukocytosis with no clear source of infection. This is improving. No indication for antibiotics at this time. Discharge discussed with: patient, nurse, case management - Time Spent with Patient Total time spent providing and/or coordinating discharge services: Less than 30 minutes (25 min) - Discharge Medications Prescriptions: Ipratropium/Albuterol Neb [Duoneb] 3 ml IH [id number] PRN #30 inhsol PRN Reason: Shortness of breath/ wheezing Aspirin Enteric Coated [Aspirin EC] 81 mg PO DAILY #30 tablet. Diltiazem CD (24hr) [Cardizem CD] 240 mg PO DAILY #60 cap.er.24h Lisinopril [Zestril] 5 mg PO DAILY #30 tablet Home Medications: Carvedilol [Coreg] 37.5 mg PO BIDWM 03/22/18 [History] FLUoxetine HCl [Prozac] 20 mg PO DAILY 03/22/18 [History] Oxybutynin [Ditropan] 2.5 mg PO BID 03/22/18 [History] Simvastatin [Zocor] 10 mg PO DAILY 03/22/18 [History] risperiDONE [Risperdal] 3 mg PO BID 03/22/18 [History] Aspirin Enteric Coated [Aspirin EC] 81 mg PO DAILY #30 tablet. 03/23/18 [Rx] Diltiazem CD (24hr) [Cardizem CD] 240 mg PO DAILY #60 cap.er.24h 03/23/18 [Rx] Ipratropium/Albuterol Neb [Duoneb] 3 ml IH [id number] PRN #30 inhsol 03/23/18 [Rx] Lisinopril [Zestril] 5 mg PO DAILY #30 tablet 03/23/18 [Rx] Allergies/Adverse Reactions: 3 Allergy/AdvReac Type Severity Reaction Status Date / Time cephalexin [From Keflex] Allergy Rash Verified 03/22/18 12:06 Date of admission: 03/22/18 12:47 Primary care physician: Colin Mancini MD Consults: 03/22/18 14:08 Consult to Nutrition [CONS] Routine Comment: Consulting Provider: NUTRITION Reason for Dietary Consult: MST Score Consult to Pastoral Services [CONS] Routine Comment: Discharging clinician: Meaghan Holden Anticipated date of discharge: 03/23/18 - Constitutional Vitals: Temp Pulse Resp BP Pulse Ox 98.9 F 103 17 152/89 95 03/23/18 11:03 03/23/18 11:03 03/23/18 11:03 03/23/18 11:03 03/23/18 11:03 General appearance: Present: cooperative, A&O X 3, answers questions appropriately - Neck Neck exam general surgery: Present: supple, trachea midline. Absent: lymphadenopathy - Respiratory Respiratory exam: Present: CTAB. Absent: accessory muscle use, rales, rhonchi, wheezes - Cardiovascular Cardiovascular exam: Present: RRR, +S1, +S2. Absent: diastolic murmur, gallop, rubs, systolic murmur - GI/Abdominal GI/Abdominal exam: Present: normal bowel sounds, soft, no peritoneal signs. Absent: distended, tenderness - Neurological Exam Neurological exam: Present: oriented X3, no focal deficits. Absent: speech deficit Additional comments: Slow speech which is his baseline. - Psychiatric Psychiatric exam: Present: flat affect - Skin Skin exam: Present: dry, intact - Patient Status Disposition: Transfer SNF Condition: Fair Functional capacity at discharge: uses cane/walker Overall status at discharge: patient is progressing back to baseline - Discharge Instructions Instructions: Atrial Fibrillation (DC), Diabetes Mellitus Type 2 in Adults (DC) Follow Up With: Colin Mancini MD [Primary Care Provider] - (patient is from [place]..) Any Cullen DO [Partnered Physician] - (In one to 2 weeks) - Diet and Activity Activity: as per physical therapy, increase activity as tolerated Diet: diabetic diet, low fat, low cholesterol, low salt diet
--- NOTE | 2018-03-23 14:21 | Physician Discharge Referral ---
ExtendedCare Referral Info Provider in Charge after Transfer: PCP Institutional Level of Care: Skilled - Diagnosis (1) Atrial fibrillation with RVR Priority: Primary Status: Chronic (2) Hypertension Priority: Secondary Status: Chronic (3) Leukocytosis Priority: Secondary Status: Acute (4) Type 2 diabetes mellitus Priority: Secondary Status: Chronic Prognosis: Fair Aware of Diagnosis: Patient Aware of Prognosis: Patient - Transfer Medications Prescriptions: Ipratropium/Albuterol Neb [Duoneb] 3 ml IH [id number] PRN #30 inhsol PRN Reason: Shortness of breath/ wheezing Aspirin Enteric Coated [Aspirin EC] 81 mg PO DAILY #30 tablet. Diltiazem CD (24hr) [Cardizem CD] 240 mg PO DAILY #60 cap.er.24h Lisinopril [Zestril] 5 mg PO DAILY #30 tablet Home Medications: Carvedilol [Coreg] 37.5 mg PO BIDWM 03/22/18 [History] FLUoxetine HCl [Prozac] 20 mg PO DAILY 03/22/18 [History] Oxybutynin [Ditropan] 2.5 mg PO BID 03/22/18 [History] Simvastatin [Zocor] 10 mg PO DAILY 03/22/18 [History] risperiDONE [Risperdal] 3 mg PO BID 03/22/18 [History] Aspirin Enteric Coated [Aspirin EC] 81 mg PO DAILY #30 tablet. 03/23/18 [Rx] Diltiazem CD (24hr) [Cardizem CD] 240 mg PO DAILY #60 cap.er.24h 03/23/18 [Rx] Ipratropium/Albuterol Neb [Duoneb] 3 ml IH [id number] PRN #30 inhsol 03/23/18 [Rx] Lisinopril [Zestril] 5 mg PO DAILY #30 tablet 03/23/18 [Rx] Allergies/Adverse Reactions: 3 Allergy/AdvReac Type Severity Reaction Status Date / Time cephalexin [From Keflex] Allergy Rash Verified 03/22/18 12:06 - Respiratory Orders Oxygen / L per min (Keep sats greater than 90%) Smoking Cessation: Smoking cessation has been advised. For more information, call the [employer] Tobacco Quit Line at 6-612-NMSR-NOW. - Advance Directives Code Status: Full Code - Mobility Orders Other (per PT) - Rehabiliation Orders Rehab Potential: Fair Rehab Orders: Evaluation for Physical Therapy, Evaluation for Occupational Therapy - Diet Orders No Concentrated Sweets (Diabetic), Cardiac CERTIFICATION: I certify that the transfer of the above named patient to an Extended Care Facility is necessary for the continuing treatment of the diagnosis listed. The above information is true and accurate reflection of patient's current condition. Confidential - Redisclosure prohibited without a patient's written consent.
--- NOTE | 2018-03-23 17:36 | Electrocardiograph Report ---
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
[2018-03-24] MEDS ORDERED: Diltiazem CD (24hr) 120 MG CAPSULE PO SCH (09:00)
== END 2018-03-23 17:02 ==
LOC: 2ANU 07:56 → EMEROO 07:56 → 2ANU 13:33
PROVIDERS: ADMIT Internal Medicine; ATTEND Internal Medicine

== ENCOUNTER 2018-07-27 07:39 | Observation (INO) ==
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
[2018-07-27] MEDS: 0.9 % Sodium Chloride 1,000 ML IVC SCH ×2 (07:59→09:02)
[2018-07-27 08:06] LABS: Basophils # 0.1 K/mcL (0.0-0.2); Basophils % 0.4 %; Eosinophils # 0.3 K/mcL (0.0-0.6); Hemoglobin 15.2 g/dL (12.9-16.9); Immature Granulocytes % 0.4 % (0-4); Lymphocytes # 1.6 K/mcL (0.6-4.6); Mean Corpuscular HGB Conc 32.3 g/dL (31.6-35.5); Mean Corpuscular Hemoglobin 26.3 pg (28.0-33.3); Mean Corpuscular Volume 81.3 fL (83.0-100.0); Mean Platelet Volume 10.3 fL (9.4-12.4); Monocytes # 1.7 K/mcL (0.0-1.3); Monocytes % 12.5 %; Neutrophils # 9.9 K/mcL (1.6-8.9); Platelet Count 265 K/mcL (140-400); Red Blood Count 5.78 M/mcL (4.19-5.50); Red Cell Distribution Width 14.9 % (11.5-14.5); Segmented Neutrophils % 72.7 %
[2018-07-27 08:12] LABS: INR 1.3; Prothrombin Time 14.1 Seconds (9.4-12.1)
[2018-07-27 08:27] LABS: Alanine Aminotransferase 23 Units/L (7-52); Albumin/Globulin Ratio 1.1 (1.1-2.2); Alkaline Phosphatase 99 Units/L (34-104); Aspartate Amino Transferase 24 Units/L (13-39); BUN/Creatinine Ratio 19 (6-26); Bilirubin,Total 0.7 mg/dL (0.3-1.0); Blood Urea Nitrogen 22 mg/dL (6-20); Calcium 9.3 mg/dL (8.6-10.3); Carbon Dioxide 22 mEq/L (23-29); Chloride 105 mEq/L (98-107); Globulin 3.5 g/dL (2.4-3.5); Glucose 139 mg/dL (70-105); Osmolality,Calculated 294 (280-300); Potassium 3.3 mEq/L (3.5-5.1); Sodium 139 mEq/L (136-145); Total Protein 7.5 g/dL (6.4-8.9); Troponin I < 0.03 ng/mL (< 0.04); eGFR For Non-African Americans > 60 (> 60)
[2018-07-27 09:19] LABS: Digoxin < 0.3 ng/mL (0.8-2.0)
[2018-07-27 10:32] LABS: Bilirubin,Urine Small (Negative); Blood,Urine Negative (Negative); Clarity,Urine Clear (Clear); Color,Urine Dark Yellow (Yellow); Glucose,Urine (UA) Normal (Normal); Ketones,Urine 15 mg/dL (Negative); Leukocyte Esterase,Urine Trace (Negative); Nitrite,Urine Negative (Negative); Protein,Urine 30 mg/dL (Neg-Trace); Specific Gravity,Urine 1.014 (1.010-1.025); Urobilinogen,Urine Normal (Normal)
[2018-07-27 10:37] LABS: Bacteria,Urine None Seen per hpf (None-Few); Hyaline Casts,Urine Few per lpf (None-Few); RBC,Urine 0-3 per hpf (0-3); Squamous Epithelial Cell,Urine Many per lpf (None-Few); WBC,Urine 15-30 per hpf (0-3)
[2018-07-27] MEDS ORDERED: Acetaminophen 325 MG TABLET PO PRN (11:27)
[2018-07-27] MEDS ORDERED: *HR* OxyCODONE Immed Rel 5 MG TABLET PO PRN (11:27)
[2018-07-27] MEDS ORDERED: *HR* HYDROcodone/Acet 5/325 mg TABLET PO PRN (11:27)
[2018-07-27] MEDS ORDERED: Naloxone 0.4 MG/ML INJ IVP PRN (11:27)
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
[2018-07-27] MEDS ORDERED: *HR* Dextrose 50 % in Water (Syg) 50 ML SYRINGE IVP PRN (12:09)
[2018-07-27] MEDS ORDERED: D5% in Water 1,000 ML IVC PRN (12:09)
[2018-07-27] MEDS ORDERED: Dextrose Gel 15 GM/37.5 ML TUBE PO PRN ×2 (12:09)
[2018-07-27] MEDS: Ringers Solution, Lactated 1,000 ML IVC SCH ×2 (13:24→22:58)
--- NOTE | 2018-07-27 16:44 | Electrocardiograph Report ---
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
[2018-07-27] MEDS: Insulin LISPRO 300 UNITS/3 ML VIAL SQ SCH ×2 (17:43→21:13)
[2018-07-28 04:39] LABS: Basophils # 0.1 K/mcL (0.0-0.2); Basophils % 0.6 %; Eosinophils # 0.5 K/mcL (0.0-0.6); Eosinophils % 4.7 %; Hematocrit 40.9 % (37.5-50.1); Immature Granulocytes % 0.4 % (0-4); Lymphocytes # 1.6 K/mcL (0.6-4.6); Mean Corpuscular HGB Conc 32.5 g/dL (31.6-35.5); Mean Corpuscular Hemoglobin 26.7 pg (28.0-33.3); Mean Corpuscular Volume 82.1 fL (83.0-100.0); Monocytes # 1.3 K/mcL (0.0-1.3); Monocytes % 13.5 %; Neutrophils # 6.3 K/mcL (1.6-8.9); Platelet Count 226 K/mcL (140-400); Red Blood Count 4.98 M/mcL (4.19-5.50); Red Cell Distribution Width 15.6 % (11.5-14.5); Segmented Neutrophils % 64.8 %
[2018-07-28 04:43] LABS: Hemoglobin 13.3 g/dL (12.9-16.9)
[2018-07-28 04:45] LABS: BUN/Creatinine Ratio 21 (6-26); Blood Urea Nitrogen 19 mg/dL (6-20); Calcium 8.1 mg/dL (8.6-10.3); Carbon Dioxide 25 mEq/L (23-29); Chloride 111 mEq/L (98-107); Glucose 105 mg/dL (70-105); Osmolality,Calculated 297 (280-300); Potassium 3.8 mEq/L (3.5-5.1); Sodium 142 mEq/L (136-145); eGFR For Non-African Americans > 60 (> 60)
[2018-07-28] MEDS: Insulin LISPRO 300 UNITS/3 ML VIAL SQ SCH ×4 (07:53→21:03)
[2018-07-28 09:25] LABS: Estimated Average Glucose 137 mg/dl; Hemoglobin A1C 6.4 %
[2018-07-28] MEDS: *HR* SitaGLIPtin 25 MG TABLET PO SCH (09:46)
[2018-07-28] MEDS: Aspirin Enteric Coated 81 MG Tablet PO SCH (09:47)
[2018-07-28] MEDS: RisperiDAL 3 MG TABLET PO SCH ×2 (09:47→20:59)
[2018-07-28] MEDS: Diltiazem CD (24hr) 240 MG CAPSULE PO SCH (09:47)
[2018-07-28] MEDS: FLUoxetine 20 MG CAPSULE PO SCH (09:47)
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
[2018-07-29 03:47] LABS: Basophils # 0.1 K/mcL (0.0-0.2); Basophils % 0.5 %; Eosinophils # 0.3 K/mcL (0.0-0.6); Eosinophils % 2.7 %; Hematocrit 43.8 % (37.5-50.1); Hemoglobin 13.9 g/dL (12.9-16.9); Immature Granulocytes % 0.5 % (0-4); Lymphocytes # 1.2 K/mcL (0.6-4.6); Lymphocytes % 10.5 %; Mean Corpuscular HGB Conc 31.7 g/dL (31.6-35.5); Mean Corpuscular Hemoglobin 26.6 pg (28.0-33.3); Mean Corpuscular Volume 83.9 fL (83.0-100.0); Mean Platelet Volume 10.9 fL (9.4-12.4); Monocytes % 8.8 %; Platelet Count 116 K/mcL (140-400); Red Blood Count 5.22 M/mcL (4.19-5.50); Red Cell Distribution Width 15.7 % (11.5-14.5)
[2018-07-29 04:04] LABS: Neutrophils # 8.6 K/mcL (1.6-8.9)
[2018-07-29 04:09] LABS: BUN/Creatinine Ratio 19 (6-26); Blood Urea Nitrogen 18 mg/dL (6-20); Calcium 8.7 mg/dL (8.6-10.3); Carbon Dioxide 21 mEq/L (23-29); Chloride 107 mEq/L (98-107); Glucose 110 mg/dL (70-105); Osmolality,Calculated 291 (280-300); Potassium 3.6 mEq/L (3.5-5.1); Sodium 139 mEq/L (136-145); eGFR For Non-African Americans > 60 (> 60)
[2018-07-29] MEDS: Insulin LISPRO 300 UNITS/3 ML VIAL SQ SCH ×4 (08:31→21:05)
[2018-07-29] MEDS: FLUoxetine 20 MG CAPSULE PO SCH (08:33)
[2018-07-29] MEDS: Diltiazem CD (24hr) 240 MG CAPSULE PO SCH (08:33)
[2018-07-29] MEDS: *HR* SitaGLIPtin 25 MG TABLET PO SCH (08:33)
[2018-07-29] MEDS: Aspirin Enteric Coated 81 MG Tablet PO SCH (08:33)
[2018-07-29] MEDS: RisperiDAL 3 MG TABLET PO SCH ×2 (08:33→21:55)
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
[2018-07-30] MEDS: FLUoxetine 20 MG CAPSULE PO SCH (07:03)
[2018-07-30] MEDS: *HR* SitaGLIPtin 25 MG TABLET PO SCH (07:03)
[2018-07-30] MEDS: Aspirin Enteric Coated 81 MG Tablet PO SCH (07:03)
[2018-07-30] MEDS: Diltiazem CD (24hr) 240 MG CAPSULE PO SCH (07:03)
[2018-07-30] MEDS: Insulin LISPRO 300 UNITS/3 ML VIAL SQ SCH ×4 (07:36→20:57)
[2018-07-30] MEDS: RisperiDAL 3 MG TABLET PO SCH ×2 (07:39→21:00)
--- NOTE | 2018-07-30 11:17 | Discharge Summary ---
- NOTES TO OUTPATIENT PROVIDER Notes to Outpatient Provider: Follow up with PCP in one week Orders not resulted at time of discharge: Pending orders 07/27/18 08:36 Culture,Blood [BC] Stat 07/29/18 04:00 Vitamin D 25 Hydroxy AM 0400 Date of Encounter: 07/30/18 Time of Encounter: 11:14 - Discharge Diagnosis (1) Dehydration Priority: Primary Status: Acute (2) Frequent falls Priority: Primary Status: Acute (3) Hypertension Priority: Secondary Status: Chronic Qualifiers: Hypertension type: essential hypertension Qualified Code(s): I10 - Essential (primary) hypertension (4) Hyperlipidemia Priority: Secondary Status: Chronic Qualifiers: Hyperlipidemia type: unspecified Qualified Code(s): E78.5 - Hyperlipidemia, unspecified (5) Type 2 diabetes mellitus Priority: Secondary Status: Chronic Qualifiers: Diabetes mellitus longterm insulin use: without stock control supervisor use Diabetes mellitus complication status: with kidney complications Diabetes mellitus complication detail: with other kidney complication Qualified Code(s): E11.29 - Type 2 diabetes mellitus with other diabetic kidney complication (6) Leukocytosis Priority: Secondary Status: Resolved Qualifiers: Leukocytosis type: unspecified Qualified Code(s): D72.829 - Elevated white blood cell count, unspecified (7) Heart failure Priority: Secondary Status: Chronic Qualifiers: Heart failure type: diastolic Heart failure chronicity: chronic Qualified Code(s): I50.32 - Chronic diastolic (congestive) heart failure (8) Weakness Priority: Primary Status: Acute Hospital course: Mr. Park is a 58 year old male with medical history of atrial fibrillation not on anticoagulation due to frequent false high risk for brain hemorrhage, type 2 diabetes mellitus, diastolic CHF, cardiomyopathy and hypertension pt was brought into the ER by EMS due to frequent falls at home as well as dehydration and poor living condition at home. In the 1st into the ER patient was so dehydrated. Patient was admitted in the hospital and started him on symptomatic and supportive care with IV hydration. His symptoms improved. His weakness and lethargic slightly improved. Patient was evaluated with physical therapy/occupational therapy who recommended s swing bed / ECF placement for short-term physical therapy. So will d/c him to ECF in stable condition today. - Time Spent with Patient Total time spent providing and/or coordinating discharge services: - Discharge Medications Home Medications: Carvedilol [Coreg] 37.5 mg PO BIDWM 03/22/18 [History] FLUoxetine HCl [Prozac] 20 mg PO DAILY 03/22/18 [History] Oxybutynin [Ditropan] 2.5 mg PO BID 03/22/18 [History] risperiDONE [Risperdal] 3 mg PO BID 03/22/18 [History] Aspirin Enteric Coated [Aspirin EC] 81 mg PO DAILY #30 tablet.dr 03/23/18 [Rx] Diltiazem CD (24hr) [Cardizem CD] 240 mg PO DAILY #60 cap.er.24h 03/23/18 [Rx] Lisinopril [Zestril] 5 mg PO DAILY #30 tablet 03/23/18 [Rx] Albuterol Sulfate [Ventolin Hfa] 2 puff IH Q4-6H PRN 07/27/18 [History] Rosuvastatin Calcium [Crestor] 10 mg PO HS 07/27/18 [History] SitaGLIPtin [Januvia] 25 mg PO DAILY 07/27/18 [History] Allergies/Adverse Reactions: Allergy/AdvReac Type Severity Reaction Status Date / Time cephalexin [From Keflex] Allergy Rash Verified 03/22/18 12:06 Date of admission: 07/27/18 11:20 Primary care physician: Colin Mancini MD Consults: 07/27/18 11:34 Consult to Occupational Therapy [CONS] Routine Comment: Evaluate, develop and implement POC Reason for Consult: Falls, weakness Does patient have active BEDREST order?: No Is patient medically & hemodynamically stable?: Yes Consult to Physical Therapy [CONS] Routine Comment: Evaluate, develop and implement POC Reason for Consult: Falls, weakness Does patient have active BEDREST order?: No Is patient medically & hemodynamically stable?: Yes 07/30/18 08:23 Consult to Information Delivery Analyst [CONS] Routine Reason for SW Consult: [facility]? PT/OT RECOMMEND REHAB - Constitutional Vitals: Temp Pulse Resp BP Pulse Ox 98.5 F 89 18 150/90 95 07/30/18 06:42 07/30/18 06:42 07/30/18 06:42 07/30/18 08:23 07/30/18 06:42 General appearance: Present: disheveled, A&O X 3, pleasant, no acute distress Exam: Gen: Alert, awake, Oriented to time,place and person Chest: Diminished breath sounds B/L, No wheezing, No crackles, No rales Heart: S1S2+ Afib, No murmurs Abd: Soft, NT, BS +, No organomegaly Ext: No edema, pulses are palpable, No calf tenderness Neuro : No neuro deficits Skin: No rash. - Patient Status Disposition: Transfer SNF Condition: Good Overall status at discharge: patient is back to baseline - Discharge Instructions Follow Up With: Colin Mancini MD [Primary Care Provider] - (Please call [phone] to schedule follow up appointment for 7-10 days from date of discharge. ) - Diet and Activity Activity: as per physical therapy, increase activity as tolerated Diet: low salt diet - VTE Documentation of Mechanical Device: Intermittent pneumatic compression device
[2018-07-31 07:21] VITALS: BP 167/97
[2018-07-31] MEDS: Insulin LISPRO 300 UNITS/3 ML VIAL SQ SCH (08:48)
[2018-07-31] MEDS: Diltiazem CD (24hr) 240 MG CAPSULE PO SCH (09:25)
[2018-07-31] MEDS: Aspirin Enteric Coated 81 MG Tablet PO SCH (09:25)
[2018-07-31] MEDS: *HR* SitaGLIPtin 25 MG TABLET PO SCH (09:25)
[2018-07-31] MEDS: FLUoxetine 20 MG CAPSULE PO SCH (09:25)
[2018-07-31] MEDS: RisperiDAL 3 MG TABLET PO SCH (09:26)
--- NOTE | 2018-07-31 09:56 | Physician Discharge Referral ---
ExtendedCare Referral Info Transfer To: F Provider in Charge after Transfer: PCP Institutional Level of Care: Skilled - Diagnosis (1) Dehydration Status: Acute (2) Frequent falls Status: Acute (3) Hypertension Status: Chronic (4) Hyperlipidemia Status: Chronic (5) Type 2 diabetes mellitus Status: Chronic (6) Leukocytosis Status: Resolved (7) Heart failure Status: Chronic (8) Weakness Status: Acute - Transfer Medications Home Medications: Carvedilol [Coreg] 37.5 mg PO BIDWM 03/22/18 [History] FLUoxetine HCl [Prozac] 20 mg PO DAILY 03/22/18 [History] Oxybutynin [Ditropan] 2.5 mg PO BID 03/22/18 [History] risperiDONE [Risperdal] 3 mg PO BID 03/22/18 [History] Aspirin Enteric Coated [Aspirin EC] 81 mg PO DAILY #30 tablet.dr 03/23/18 [Rx] Diltiazem CD (24hr) [Cardizem CD] 240 mg PO DAILY #60 cap.er.24h 03/23/18 [Rx] Lisinopril [Zestril] 5 mg PO DAILY #30 tablet 03/23/18 [Rx] Albuterol Sulfate [Ventolin Hfa] 2 puff IH Q4-6H PRN 07/27/18 [History] Rosuvastatin Calcium [Crestor] 10 mg PO HS 07/27/18 [History] SitaGLIPtin [Januvia] 25 mg PO DAILY 07/27/18 [History] Allergies/Adverse Reactions: Allergy/AdvReac Type Severity Reaction Status Date / Time cephalexin [From Keflex] Allergy Rash Verified 03/22/18 12:06 - Respiratory Orders Smoking Cessation: Smoking cessation has been advised. For more information, call the [place] Tobacco Quit Line at 1-736-CWXCNOW. CERTIFICATION: I certify that the transfer of the above named patient to an Extended Care Facility is necessary for the continuing treatment of the diagnosis listed. The above information is true and accurate reflection of patient's current condition. Confidential - Redisclosure prohibited without a patient's written consent.
--- NOTE | 2018-07-31 10:01 | Internal Med Progress Note ---
Hospitalist Progress Note - Encounter Date of Encounter: 07/31/18 Time of Encounter: 10:01 - Subjective Interval History: Patient was seen and examined at bedside he denied any chest pain or shortness of breath patient was supposedly have to go to ECF y/d, however due to insurance issues he did not leave last night no events over night he is resting comfortably in the bed now - Exam Vitals: Temp Pulse Resp BP Pulse Ox 98.4 F 95 16 167/97 93 07/31/18 07:19 07/31/18 07:19 07/31/18 07:19 07/31/18 07:19 07/31/18 07:19 Exam: Gen: Alert, awake, Oriented to time,place and person Chest: Diminished breath sounds B/L, No wheezing, No crackles, No rales Heart: S1S2+ RRR No murmurs Abd: Soft, NT, BS +, No organomegaly Ext: No edema, pulses are palpable, No calf tenderness Neuro : Benign findings Skin: No rash. - Assessment and Plan (1) Dehydration Current Visit: Yes Status: Acute Assessment and Plan: improved with IVF. (2) Frequent falls Current Visit: Yes Status: Acute Assessment and Plan: PT/OT recommend ECF placement for short-term physical therapy he is medically stable to discharge to ECF today (3) Hypertension Current Visit: Yes Status: Chronic Assessment and Plan: BP controlled, Continue home medications (4) Hyperlipidemia Current Visit: Yes Status: Chronic Assessment and Plan: Resume home meds (5) Type 2 diabetes mellitus Current Visit: Yes Status: Chronic Assessment and Plan: A1C 6.4, continue home meds, started pt on insulin sliding scale. (6) Leukocytosis Current Visit: Yes Status: Resolved Assessment and Plan: Reactive improved (7) Heart failure Current Visit: Yes Status: Chronic Assessment and Plan: ECHO from 02/2018 noted Resume home meds (8) Weakness Current Visit: Yes Status: Acute - Time Spent with Patient Total time spent is greater than 50% in coordination of care (as documented) at patient's floor/unit and/or counseling patient: Internal Medicine: Result - Labs CBC & Chem 7: 07/29/18 02:50 07/29/18 02:50 - ABG Interpretation ABG results: PT/INR, D-dimer PT 14.1 Seconds (9.4-12.1) H 07/27/18 07:53 - VTE Documentation of Mechanical Device: Intermittent pneumatic compression device Consult Discharge Plan - Plan Referrals: Colin Mancini MD [Primary Care Provider] - (Please call [phone] to schedule follow up appointment for 7-10 days from date of discharge. ) (3) Hypertension Qualifiers: Hypertension type: essential hypertension Qualified Code(s): I10 - Essential (primary) hypertension (4) Hyperlipidemia Qualifiers: Hyperlipidemia type: unspecified Qualified Code(s): E78.5 - Hyperlipidemia, unspecified (5) Type 2 diabetes mellitus Qualifiers: Diabetes mellitus mcc insulin use: without mcc use Diabetes mellitus complication status: with kidney complications Diabetes mellitus complication detail: with other kidney complication Qualified Code(s): E11.29 - Type 2 diabetes mellitus with other diabetic kidney complication (6) Leukocytosis Qualifiers: Leukocytosis type: unspecified Qualified Code(s): D72.829 - Elevated white blood cell count, unspecified (7) Heart failure Qualifiers: Heart failure type: diastolic Heart failure chronicity: chronic Qualified Code(s): I50.32 - Chronic diastolic (congestive) heart failure
== END 2018-07-31 11:04 ==
LOC: 3BNU 07:39 → EMEROOARM 07:39 → 3BNU 11:34
PROVIDERS: ADMIT Internal Medicine; ATTEND Internal Medicine

== ENCOUNTER 2021-01-14 14:40 | Inpatient (IN) ==
[2021-01-14] MEDS ORDERED: Isovue-370 500 ML BOTTLE IVP ONE (14:53)
[2021-01-14 15:24] LABS: Basophils # 0.1 K/mcL (0.0-0.2); Basophils % 0.7 %; Eosinophils % 0.3 %; Hematocrit 39.3 % (37.5-50.1); Hemoglobin 12.9 g/dL (12.9-16.9); Immature Granulocytes % 0.5 % (0-4); Lymphocytes # 1.3 K/mcL (0.6-4.6); Lymphocytes % 11.4 %; Mean Corpuscular HGB Conc 32.8 g/dL (31.6-35.5); Mean Corpuscular Hemoglobin 27.4 pg (28.0-33.3); Mean Corpuscular Volume 83.4 fL (83.0-100.0); Mean Platelet Volume 10.2 fL (9.4-12.4); Monocytes # 1.1 K/mcL (0.0-1.3); Monocytes % 9.6 %; Neutrophils # 8.9 K/mcL (1.6-8.9); Platelet Count 233 K/mcL (140-400); Red Blood Count 4.71 M/mcL (4.19-5.50); Red Cell Distribution Width 14.6 % (11.5-14.5); Segmented Neutrophils % 77.5 %; White Blood Count 11.5 K/mcL (4.3-11.1)
[2021-01-14 15:39] LABS: Activated Partial Thrombo Time 32.1 Seconds (26.0-36.0); INR 1.5; Prothrombin Time 16.6 Seconds (9.4-12.1)
[2021-01-14 15:48] LABS: Troponin I 0.04 ng/mL (< 0.04)
[2021-01-14 15:49] LABS: Alanine Aminotransferase 29 Units/L (7-52); Albumin 3.9 g/dL (3.5-5.7); Alkaline Phosphatase 91 Units/L (34-104); Aspartate Amino Transferase 22 Units/L (13-39); BUN/Creatinine Ratio 19 (6-26); Bilirubin,Direct 0.2 mg/dL (0.0-0.2); Bilirubin,Indirect 0.5 mg/dL (0.0-1.0); Bilirubin,Total 0.7 mg/dL (0.3-1.0); Blood Urea Nitrogen 22 mg/dL (8-23); C-Reactive Protein 50 mg/L (Less than 10); Carbon Dioxide 25 mEq/L (23-29); Chloride 102 mEq/L (98-107); Globulin 3.8 g/dL (2.4-3.5); Glucose 94 mg/dL (70-105); Lactate Dehydrogenase 192 Units/L (140-271); Magnesium 1.6 mg/dL (1.6-2.6); Osmolality,Calculated 285 (280-300); Phosphorous 2.9 mg/dL (2.7-4.5); Potassium 3.6 mEq/L (3.5-5.1); Sodium 136 mEq/L (136-145); Total Protein 7.7 g/dL (6.4-8.9); eGFR For African Americans > 60 (> 60); eGFR For Non-African Americans > 60 (> 60)
[2021-01-14] MEDS ORDERED: Aspirin 81 MG TAB.CHEW PO SCH (16:00)
[2021-01-14] MEDS ORDERED: Furosemide 40 MG/4 ML VIAL IVP ONE (16:05)
[2021-01-14 16:12] LABS: Bilirubin,Urine Negative (Negative); Blood,Urine Negative (Negative); Clarity,Urine Clear (Clear); Color,Urine Light-Yellow (Yellow); Glucose,Urine (UA) Normal (Normal); Ketones,Urine Negative (Negative); Leukocyte Esterase,Urine Negative (Negative); Nitrite,Urine Negative (Negative); Protein,Urine Trace mg/dL (Neg-Trace); Specific Gravity,Urine 1.021 (1.010-1.025); Urobilinogen,Urine Normal (Normal)
[2021-01-14] MEDS ORDERED: Naloxone 0.4 MG/ML INJ IVP PRN (17:01)
[2021-01-14] MEDS ORDERED: Ondansetron 4 MG/2 ML VIAL IVP PRN (17:01)
[2021-01-14 17:23] LABS: Ferritin 106 ng/mL (20-250)
[2021-01-14] MEDS ORDERED: Perflutren Lipid Microsphere 1.3 ML in 0.9 % Sodium Chloride 8.7 ML IVP PRN (18:01)
[2021-01-14] MEDS ORDERED: Dextrose Gel 15 GM/37.5 ML TUBE PO PRN ×2 (18:02)
[2021-01-14] MEDS ORDERED: D5% in Water 1,000 ML IVC PRN (18:02)
[2021-01-14] MEDS ORDERED: *HR* Dextrose 50 % in Water (Vial) 50 ML VIAL IVP PRN (18:02)
[2021-01-14] MEDS: Ipratropium/Albuterol Neb 3 ML IH SCH ×3 (18:20→23:34)
[2021-01-14] MEDS: *HR* Heparin 5,000 UNIT/ML VIAL SQ SCH (19:04)
[2021-01-14] MEDS: MethylPREDNISolone 40 MG/ML VIAL IVP SCH ×2 (19:04→23:29)
[2021-01-14 19:16] LABS: Estimated Average Glucose 123 mg/dl; Hemoglobin A1C 5.9 %
[2021-01-14] MEDS: Insulin LISPRO 300 UNITS/3 ML VIAL SUBQ SCH (19:33)
[2021-01-14] MEDS: Budesonide/Formoterol 160/4.5 1 PUFF INH IH SCH (20:12)
[2021-01-14] MEDS: Furosemide 40 MG/4 ML VIAL IVP SCH (20:57)
[2021-01-15 03:04] LABS: Basophils % 0.4 %; Hematocrit 43.1 % (37.5-50.1); Hemoglobin 13.7 g/dL (12.9-16.9); Immature Granulocytes % 0.8 % (0-4); Lymphocytes # 0.5 K/mcL (0.6-4.6); Lymphocytes % 6.6 %; Mean Corpuscular HGB Conc 31.8 g/dL (31.6-35.5); Mean Corpuscular Hemoglobin 26.9 pg (28.0-33.3); Mean Corpuscular Volume 84.5 fL (83.0-100.0); Mean Platelet Volume 10.1 fL (9.4-12.4); Monocytes # 0.1 K/mcL (0.0-1.3); Monocytes % 1.3 %; Neutrophils # 6.8 K/mcL (1.6-8.9); Platelet Count 222 K/mcL (140-400); Red Cell Distribution Width 14.7 % (11.5-14.5); Segmented Neutrophils % 90.9 %; White Blood Count 7.5 K/mcL (4.3-11.1)
[2021-01-15 03:23] LABS: BUN/Creatinine Ratio 18 (6-26); Blood Urea Nitrogen 21 mg/dL (8-23); Calcium 8.8 mg/dL (8.6-10.3); Carbon Dioxide 25 mEq/L (23-29); Chloride 101 mEq/L (98-107); Glucose 182 mg/dL (70-105); Magnesium 1.9 mg/dL (1.6-2.6); Osmolality,Calculated 290 (280-300); Phosphorous 3.6 mg/dL (2.7-4.5); Potassium 3.9 mEq/L (3.5-5.1); Sodium 136 mEq/L (136-145); eGFR For African Americans > 60 (> 60); eGFR For Non-African Americans > 60 (> 60)
[2021-01-15] MEDS: Ipratropium/Albuterol Neb 3 ML IH SCH ×6 (04:38→23:53)
[2021-01-15] MEDS: *HR* Heparin 5,000 UNIT/ML VIAL SQ SCH (05:09)
[2021-01-15] MEDS: Budesonide/Formoterol 160/4.5 1 PUFF INH IH SCH ×2 (07:44→20:29)
[2021-01-15] MEDS: lisinopriL 5 MG TABLET PO SCH (07:58)
[2021-01-15] MEDS: carvediloL 6.25 MG TABLET PO SCH ×2 (07:58→16:32)
[2021-01-15] MEDS: Furosemide 40 MG/4 ML VIAL IVP SCH ×2 (07:58→16:32)
[2021-01-15] MEDS: MethylPREDNISolone 40 MG/ML VIAL IVP SCH ×2 (07:59→16:32)
[2021-01-15] MEDS: Aspirin Enteric Coated 81 MG Tablet PO SCH (08:00)
[2021-01-15] MEDS: Insulin LISPRO 300 UNITS/3 ML VIAL SUBQ SCH ×4 (08:10→21:29)
[2021-01-15] MEDS ORDERED: FLUoxetine 20 MG CAPSULE PO SCH (09:00)
[2021-01-15] MEDS ORDERED: DilTIAZem CD (24hr) 120 MG CAP.ER.24H PO SCH (09:00)
[2021-01-15] MEDS ORDERED: Nystatin Cream 15 GM TUBE TP PRN (12:17)
[2021-01-15] MEDS ORDERED: Artificial Tears SOLN 15 ML BOTTLE BOTH EYES PRN (12:36)
[2021-01-15] MEDS ORDERED: NON-FORMULARY MEDICATION 1 EACH EACH (Carvedilol [Carvedilol] 12.5 MG Tablet) PO SCH (21:00)
[2021-01-15] MEDS: Apixaban 5 MG TABLET PO SCH (21:34)
[2021-01-16] MEDS: MethylPREDNISolone 40 MG/ML VIAL IVP SCH ×3 (01:14→16:45)
[2021-01-16 01:56] LABS: Hematocrit 40.7 % (37.5-50.1); Mean Corpuscular HGB Conc 31.9 g/dL (31.6-35.5); Mean Corpuscular Hemoglobin 27.2 pg (28.0-33.3); Mean Corpuscular Volume 85.1 fL (83.0-100.0); Mean Platelet Volume 9.7 fL (9.4-12.4); Platelet Count 253 K/mcL (140-400); Red Blood Count 4.78 M/mcL (4.19-5.50); Red Cell Distribution Width 14.9 % (11.5-14.5)
[2021-01-16 01:58] LABS: White Blood Count 20.2 K/mcL (4.3-11.1)
[2021-01-16 02:12] LABS: Calcium 8.6 mg/dL (8.6-10.3); Potassium 3.8 mEq/L (3.5-5.1)
[2021-01-16] MEDS: Ipratropium/Albuterol Neb 3 ML IH SCH ×5 (03:59→19:39)
[2021-01-16] MEDS ORDERED: 0.9 % Sodium Chloride 250 ML IVC ONE ×3 (07:21→12:06)
[2021-01-16] MEDS: Budesonide/Formoterol 160/4.5 1 PUFF INH IH SCH ×2 (07:39→19:39)
[2021-01-16] MEDS ORDERED: lisinopriL 5 MG TABLET PO SCH (09:00)
[2021-01-16] MEDS ORDERED: FLUoxetine 20 MG CAPSULE PO SCH (09:00)
[2021-01-16] MEDS ORDERED: OXYBUTYNIN CHLORIDE 5 MG PO SCH (09:00)
[2021-01-16] MEDS ORDERED: Furosemide 20 MG TABLET PO SCH (09:00)
[2021-01-16] MEDS: Aspirin Enteric Coated 81 MG Tablet PO SCH (09:04)
[2021-01-16] MEDS: FLUoxetine 20 MG CAPSULE PO SCH (09:04)
[2021-01-16] MEDS: Apixaban 5 MG TABLET PO SCH ×2 (09:04→09:22)
[2021-01-16] MEDS: Multivit/Ca/Min/Fe/FA 1 TAB TABLET PO SCH (09:05)
[2021-01-16] MEDS: lisinopriL 5 MG TABLET PO SCH (09:05)
[2021-01-16] MEDS: risperiDONE 1 MG TABLET PO SCH (09:05)
[2021-01-16] MEDS: *HR* Amiodarone 200 MG TABLET PO SCH (09:07)
[2021-01-16] MEDS: carvediloL 6.25 MG TABLET PO SCH ×2 (09:07→16:34)
[2021-01-16] MEDS: Insulin LISPRO 300 UNITS/3 ML VIAL SUBQ SCH ×4 (09:09→21:43)
[2021-01-16] MEDS: Sennosides/Docusate Sodium TABLET PO SCH ×2 (10:14→19:42)
[2021-01-17] MEDS: Ipratropium/Albuterol Neb 3 ML IH SCH ×6 (00:06→19:30)
[2021-01-17] MEDS: MethylPREDNISolone 40 MG/ML VIAL IVP SCH ×3 (01:06→17:14)
[2021-01-17 02:02] LABS: Basophils % 0.1 %; Hematocrit 42.5 % (37.5-50.1); Hemoglobin 13.5 g/dL (12.9-16.9); Immature Granulocytes % 0.6 % (0-4); Lymphocytes # 0.7 K/mcL (0.6-4.6); Mean Corpuscular HGB Conc 31.8 g/dL (31.6-35.5); Mean Corpuscular Hemoglobin 27.2 pg (28.0-33.3); Mean Corpuscular Volume 85.5 fL (83.0-100.0); Mean Platelet Volume 10.1 fL (9.4-12.4); Monocytes # 0.8 K/mcL (0.0-1.3); Monocytes % 3.8 %; Neutrophils # 20.2 K/mcL (1.6-8.9); Platelet Count 297 K/mcL (140-400); Red Blood Count 4.97 M/mcL (4.19-5.50); Red Cell Distribution Width 15.1 % (11.5-14.5); Segmented Neutrophils % 92.5 %; White Blood Count 21.9 K/mcL (4.3-11.1)
[2021-01-17 02:14] LABS: Calcium 8.6 mg/dL (8.6-10.3); Potassium 3.6 mEq/L (3.5-5.1)
[2021-01-17] MEDS: Budesonide/Formoterol 160/4.5 1 PUFF INH IH SCH ×2 (08:34→19:31)
[2021-01-17] MEDS: Insulin LISPRO 300 UNITS/3 ML VIAL SUBQ SCH ×4 (11:03→22:23)
[2021-01-17] MEDS: lisinopriL 5 MG TABLET PO SCH (11:03)
[2021-01-17] MEDS: Apixaban 5 MG TABLET PO SCH ×2 (11:03→22:22)
[2021-01-17] MEDS: *HR* Amiodarone 200 MG TABLET PO SCH (11:03)
[2021-01-17] MEDS: Aspirin Enteric Coated 81 MG Tablet PO SCH (11:04)
[2021-01-17] MEDS: FLUoxetine 20 MG CAPSULE PO SCH (11:04)
[2021-01-17] MEDS: risperiDONE 1 MG TABLET PO SCH (11:04)
[2021-01-17] MEDS: Multivit/Ca/Min/Fe/FA 1 TAB TABLET PO SCH (11:04)
[2021-01-17] MEDS: Sennosides/Docusate Sodium TABLET PO SCH ×2 (11:04→22:22)
[2021-01-17] MEDS: carvediloL 6.25 MG TABLET PO SCH ×2 (11:04→17:15)
[2021-01-17 16:04] LABS: ABG Base Excess 3 mEq/L (-2 to 3); ABG HCO3 29 mEq/L (21-27); ABG Oxygen Saturation 97 % (95-98); ABG PCO2 52 mmHg (35-45); ABG PH 7.36 pH Units (7.32-7.45); ABG PO2 97 mmHg (85-104); ABG TCO2 31 mEq/L (20-26)
[2021-01-18] MEDS: Ipratropium/Albuterol Neb 3 ML IH SCH ×4 (00:02→11:21)
[2021-01-18] MEDS: MethylPREDNISolone 40 MG/ML VIAL IVP SCH ×2 (00:52→08:30)
[2021-01-18 05:08] LABS: Basophils % 0.1 %; Hematocrit 43.9 % (37.5-50.1); Hemoglobin 13.6 g/dL (12.9-16.9); Immature Granulocytes % 0.9 % (0-4); Lymphocytes # 0.7 K/mcL (0.6-4.6); Lymphocytes % 3.6 %; Mean Corpuscular Hemoglobin 26.7 pg (28.0-33.3); Mean Corpuscular Volume 86.1 fL (83.0-100.0); Monocytes # 0.6 K/mcL (0.0-1.3); Monocytes % 3.2 %; Neutrophils # 18.3 K/mcL (1.6-8.9); Platelet Count 291 K/mcL (140-400); Red Cell Distribution Width 14.7 % (11.5-14.5); Segmented Neutrophils % 92.2 %; White Blood Count 19.9 K/mcL (4.3-11.1)
[2021-01-18 05:25] LABS: BUN/Creatinine Ratio 32 (6-26); Blood Urea Nitrogen 35 mg/dL (8-23); Calcium 8.4 mg/dL (8.6-10.3); Carbon Dioxide 29 mEq/L (23-29); Chloride 102 mEq/L (98-107); Glucose 166 mg/dL (70-105); Osmolality,Calculated 296 (280-300); Potassium 4.1 mEq/L (3.5-5.1); Sodium 137 mEq/L (136-145); eGFR For African Americans > 60 (> 60); eGFR For Non-African Americans > 60 (> 60)
[2021-01-18] MEDS: Budesonide/Formoterol 160/4.5 1 PUFF INH IH SCH (07:30)
[2021-01-18] MEDS: *HR* Amiodarone 200 MG TABLET PO SCH (08:24)
[2021-01-18] MEDS: Sennosides/Docusate Sodium TABLET PO SCH (08:24)
[2021-01-18] MEDS: lisinopriL 5 MG TABLET PO SCH (08:25)
[2021-01-18] MEDS: risperiDONE 1 MG TABLET PO SCH (08:25)
[2021-01-18] MEDS: Aspirin Enteric Coated 81 MG Tablet PO SCH (08:25)
[2021-01-18] MEDS: Multivit/Ca/Min/Fe/FA 1 TAB TABLET PO SCH (08:25)
[2021-01-18] MEDS: carvediloL 6.25 MG TABLET PO SCH (08:25)
[2021-01-18] MEDS: FLUoxetine 20 MG CAPSULE PO SCH (08:26)
[2021-01-18] MEDS: Apixaban 5 MG TABLET PO SCH (08:26)
[2021-01-18] MEDS: Insulin LISPRO 300 UNITS/3 ML VIAL SUBQ SCH ×2 (08:28→12:12)
[2021-01-18 11:39] VITALS: BP 121/79
[2021-01-18 12:55] LABS: Adenovirus Not Detected (Not Detect); Bordetella Pertussis Not Detected (Not Detect); Chlamydophila pneumoniae Not Detected (Not Detect); Coronavirus 229E Not Detected (Not Detect); Coronavirus HKU1 Not Detected (Not Detect); Coronavirus NL63 Not Detected (Not Detect); Coronavirus OC43 Not Detected (Not Detect); Human Metapneumovirus Not Detected (Not Detect); Human Rhinovirus/Enterovirus DETECTED (Not Detect); Influenza A Subtype 2009 H1 Not Detected (Not Detect); Influenza B Not Detected (Not Detect); Mycoplasma pneumoniae Not Detected (Not Detect); Parainfluenza Virus 1 Not Detected (Not Detect); Parainfluenza Virus 2 Not Detected (Not Detect); Parainfluenza Virus 3 Not Detected (Not Detect); Parainfluenza Virus 4 Not Detected (Not Detect); Respiratory Syncytial Virus Not Detected (Not Detect); SARS-CoV-2 Not Detected (Not Detect)
== END 2021-01-18 15:22 | DRG 281 ==
LOC: EMEROOARM 14:40 → 2NENU 14:40
PROVIDERS: ADMIT Student in an Organized Health Care Education/Training Program; ATTEND Student in an Organized Health Care Education/Training Program

== ENCOUNTER 2021-03-22 18:03 | Inpatient (IN) ==
[2021-03-22] MEDS ORDERED: cefTRIAXone 1,000 MG in Water for inj. (sterile) 10 ML IVP ONE (18:21)
[2021-03-22] MEDS ORDERED: 0.9 % Sodium Chloride 1,000 ML IVC ONE ×2 (18:21→20:58)
[2021-03-22] MEDS ORDERED: Azithromycin 500 MG in 0.9 % Sodium Chloride 250 ML IVPB ONE (18:21)
[2021-03-22] MEDS ORDERED: Ipratropium/Albuterol Neb 3 ML IH ONE (18:22)
[2021-03-22] MEDS ORDERED: methylPREDNISolone 125 MG/2 ML VIAL IVP ONE (18:22)
[2021-03-22 18:41] LABS: VBG HCO3 25 mEq/L (21-27); VBG PCO2 44 mmHg (41-51); VBG PH 7.36 pH Units (7.32-7.42); VBG PO2 46 mmHg (25-50)
[2021-03-22 18:49] LABS: Basophils # 0.1 K/mcL (0.0-0.2); Basophils % 0.4 %; Eosinophils % 0.1 %; Hematocrit 36.9 % (37.5-50.1); Hemoglobin 11.7 g/dL (12.9-16.9); Immature Granulocytes % 0.9 % (0-4); Lymphocytes # 0.8 K/mcL (0.6-4.6); Lymphocytes % 5.4 %; Mean Corpuscular HGB Conc 31.7 g/dL (31.6-35.5); Mean Corpuscular Hemoglobin 27.1 pg (28.0-33.3); Mean Corpuscular Volume 85.6 fL (83.0-100.0); Mean Platelet Volume 10.1 fL (9.4-12.4); Monocytes # 1.6 K/mcL (0.0-1.3); Monocytes % 10.2 %; Nucleated Red Blood Cells 0.1 /100 WBC (0); Platelet Count 225 K/mcL (140-400); Red Blood Count 4.31 M/mcL (4.19-5.50); Red Cell Distribution Width 16.8 % (11.5-14.5); White Blood Count 15.7 K/mcL (4.3-11.1)
[2021-03-22 18:57] LABS: INR 2.5; Prothrombin Time 28.3 Seconds (9.4-12.1)
[2021-03-22 18:59] LABS: Activated Partial Thrombo Time 30.7 Seconds (26.0-36.0)
[2021-03-22 19:15] LABS: Alanine Aminotransferase 60 Units/L (7-52); Albumin 3.7 g/dL (3.5-5.7); Albumin/Globulin Ratio 1.1 (1.1-2.2); Alkaline Phosphatase 78 Units/L (34-104); Aspartate Amino Transferase 41 Units/L (13-39); BUN/Creatinine Ratio 19 (6-26); Bilirubin,Direct 0.3 mg/dL (0.0-0.2); Bilirubin,Indirect 0.8 mg/dL (0.0-1.0); Bilirubin,Total 1.1 mg/dL (0.3-1.0); Blood Urea Nitrogen 24 mg/dL (8-23); Calcium 8.5 mg/dL (8.6-10.3); Carbon Dioxide 23 mEq/L (23-29); Chloride 102 mEq/L (98-107); Globulin 3.4 g/dL (2.4-3.5); Glucose 161 mg/dL (70-105); Lipase 15 Units/L (11-82); Magnesium 1.3 mg/dL (1.6-2.6); Osmolality,Calculated 292 (280-300); Phosphorous 3.1 mg/dL (2.7-4.5); Potassium 3.5 mEq/L (3.5-5.1); Sodium 137 mEq/L (136-145); Total Protein 7.1 g/dL (6.4-8.9); Troponin I 0.05 ng/mL (< 0.04); eGFR For African Americans > 60 (> 60); eGFR For Non-African Americans 59 (> 60)
[2021-03-22] MEDS ORDERED: Isovue-370 500 ML BOTTLE IVP ONE (19:17)
[2021-03-22 20:09] LABS: Adenovirus Not Detected (Not Detect); Bordetella Pertussis Not Detected (Not Detect); Chlamydophila pneumoniae Not Detected (Not Detect); Coronavirus 229E Not Detected (Not Detect); Coronavirus HKU1 Not Detected (Not Detect); Coronavirus NL63 Not Detected (Not Detect); Coronavirus OC43 Not Detected (Not Detect); Human Metapneumovirus Not Detected (Not Detect); Human Rhinovirus/Enterovirus Not Detected (Not Detect); Influenza A Subtype 2009 H1 Not Detected (Not Detect); Influenza B Not Detected (Not Detect); Mycoplasma pneumoniae Not Detected (Not Detect); Parainfluenza Virus 1 Not Detected (Not Detect); Parainfluenza Virus 2 Not Detected (Not Detect); Parainfluenza Virus 3 Not Detected (Not Detect); Parainfluenza Virus 4 Not Detected (Not Detect); Respiratory Syncytial Virus Not Detected (Not Detect); SARS-CoV-2 Not Detected (Not Detect)
[2021-03-22] MEDS ORDERED: Aspirin 81 MG TAB.CHEW PO STA (20:59)
[2021-03-22 21:15] LABS: Bilirubin,Urine Negative (Negative); Blood,Urine Negative (Negative); Clarity,Urine Clear (Clear); Color,Urine Colorless (Yellow); Glucose,Urine (UA) Normal (Normal); Ketones,Urine Negative (Negative); Leukocyte Esterase,Urine Negative (Negative); Nitrite,Urine Negative (Negative); Protein,Urine Trace mg/dL (Neg-Trace); Specific Gravity,Urine 1.015 (1.010-1.025); Urobilinogen,Urine Normal (Normal)
[2021-03-23] MEDS ORDERED: Melatonin 3 MG TABLET PO PRN (00:42)
[2021-03-23] MEDS ORDERED: Ondansetron 4 MG/2 ML VIAL IVP PRN (00:42)
[2021-03-23] MEDS ORDERED: Naloxone 0.4 MG/ML INJ IVP PRN (00:42)
[2021-03-23] MEDS ORDERED: Magnesium Sulfate 1 GM/102 ML PIGGYBACK IVPB ONE (00:45)
[2021-03-23] MEDS ORDERED: D5% in Water 1,000 ML IVC PRN (05:13)
[2021-03-23] MEDS ORDERED: *HR* Dextrose 50 % in Water (Vial) 50 ML VIAL IVP PRN (05:13)
[2021-03-23] MEDS ORDERED: Dextrose Gel 15 GM/37.5 ML TUBE PO PRN ×2 (05:13)
[2021-03-23 05:14] LABS: Basophils % 0.2 %; Hematocrit 37.6 % (37.5-50.1); Hemoglobin 12.1 g/dL (12.9-16.9); Immature Granulocytes % 0.6 % (0-4); Lymphocytes # 0.7 K/mcL (0.6-4.6); Lymphocytes % 4.5 %; Mean Corpuscular HGB Conc 32.2 g/dL (31.6-35.5); Mean Corpuscular Hemoglobin 27.9 pg (28.0-33.3); Mean Corpuscular Volume 86.8 fL (83.0-100.0); Mean Platelet Volume 10.1 fL (9.4-12.4); Monocytes # 0.3 K/mcL (0.0-1.3); Platelet Count 232 K/mcL (140-400); Red Blood Count 4.33 M/mcL (4.19-5.50); Red Cell Distribution Width 17.2 % (11.5-14.5); Segmented Neutrophils % 92.7 %; White Blood Count 16.1 K/mcL (4.3-11.1)
[2021-03-23] MEDS ORDERED: Albuterol 2.5 MG/3 ML NEBULIZER IH PRN (05:16)
[2021-03-23 05:29] LABS: Alanine Aminotransferase 83 Units/L (7-52); Albumin 3.8 g/dL (3.5-5.7); Albumin/Globulin Ratio 1.1 (1.1-2.2); Alkaline Phosphatase 77 Units/L (34-104); Aspartate Amino Transferase 53 Units/L (13-39); BUN/Creatinine Ratio 17 (6-26); Bilirubin,Total 0.6 mg/dL (0.3-1.0); Blood Urea Nitrogen 16 mg/dL (8-23); Calcium 8.4 mg/dL (8.6-10.3); Carbon Dioxide 25 mEq/L (23-29); Chloride 107 mEq/L (98-107); Globulin 3.4 g/dL (2.4-3.5); Glucose 168 mg/dL (70-105); Magnesium 1.8 mg/dL (1.6-2.6); Osmolality,Calculated 293 (280-300); Phosphorous 3.8 mg/dL (2.7-4.5); Potassium 3.8 mEq/L (3.5-5.1); Sodium 139 mEq/L (136-145); Total Protein 7.2 g/dL (6.4-8.9); Troponin I 0.03 ng/mL (< 0.04); eGFR For African Americans > 60 (> 60); eGFR For Non-African Americans > 60 (> 60)
[2021-03-23] MEDS ORDERED: Azithromycin 500 MG in 0.9 % Sodium Chloride 250 ML IVPB SCH (06:00)
[2021-03-23] MEDS: predniSONE 20 MG TABLET PO SCH (10:12)
[2021-03-23] MEDS: Calcium Gluconate 1gm/50mL 1 GM/50 ML BAG IVPB SCH ×2 (10:12→11:48)
[2021-03-23] MEDS: cefTRIAXone 1,000 MG in Water for inj. (sterile) 10 ML IVP SCH (10:13)
[2021-03-23] MEDS: Insulin LISPRO 300 UNITS/3 ML VIAL SUBQ SCH ×4 (10:29→21:00)
[2021-03-23] MEDS ORDERED: Saline Nasal Spray 44 ML BOTTLE NS PRN (10:49)
[2021-03-23] MEDS ORDERED: Nystatin Cream 15 GM TUBE TP PRN (10:53)
[2021-03-23] MEDS: Ipratropium/Albuterol Neb 3 ML IH SCH ×3 (11:08→22:12)
[2021-03-23 11:18] LABS: Estimated Average Glucose 126 mg/dl
[2021-03-23] MEDS: *HR* Amiodarone 200 MG TABLET PO SCH (13:01)
[2021-03-23] MEDS ORDERED: Perflutren Lipid Microsphere 1.3 ML in 0.9 % Sodium Chloride 8.7 ML IVP PRN (15:07)
[2021-03-23] MEDS: Furosemide 20 MG/2 ML VIAL IVP SCH (16:51)
[2021-03-23] MEDS: risperiDONE 1 MG TABLET PO SCH (16:52)
[2021-03-23] MEDS: carvediloL 6.25 MG TABLET PO SCH (16:52)
[2021-03-23 18:04] LABS: Hepatitis B Surface Antigen Nonreactive (Nonreactive)
[2021-03-23 18:33] LABS: Hepatitis B Core IgM Nonreactive (Nonreactive); Hepatitis C Virus Antibody Nonreactive (Nonreactive)
[2021-03-23 18:35] LABS: Hepatitis A Antibody IgM Nonreactive (Nonreactive)
[2021-03-23] MEDS: Doxycycline 100 MG CAPSULE PO SCH (20:10)
[2021-03-23] MEDS: Apixaban 5 MG TABLET PO SCH (20:11)
[2021-03-23] MEDS: Lactobacillus 1 EACH CAP.SPRINK PO SCH (20:11)
[2021-03-23] MEDS: Chlorhexidine Rinse 15 ML MOUTHWASH MM SCH (20:12)
[2021-03-23] MEDS: Artificial Tears SOLN 15 ML BOTTLE BOTH EYES SCH (21:02)
[2021-03-23] MEDS: Budesonide/Formoterol 160/4.5 1 PUFF INH IH SCH (22:12)
[2021-03-24] MEDS: Ipratropium/Albuterol Neb 3 ML IH SCH ×4 (04:12→22:02)
[2021-03-24 06:07] LABS: Hematocrit 37.3 % (37.5-50.1); Hemoglobin 11.7 g/dL (12.9-16.9); Mean Corpuscular HGB Conc 31.4 g/dL (31.6-35.5); Mean Corpuscular Hemoglobin 27.3 pg (28.0-33.3); Mean Corpuscular Volume 87.1 fL (83.0-100.0); Mean Platelet Volume 10.3 fL (9.4-12.4); Platelet Count 248 K/mcL (140-400); Red Blood Count 4.28 M/mcL (4.19-5.50); Red Cell Distribution Width 17.5 % (11.5-14.5); White Blood Count 19.8 K/mcL (4.3-11.1)
[2021-03-24 06:33] LABS: % Iron Saturation 9 % (20-55); Alanine Aminotransferase 79 Units/L (7-52); Albumin 3.5 g/dL (3.5-5.7); Alkaline Phosphatase 69 Units/L (34-104); Aspartate Amino Transferase 31 Units/L (13-39); BUN/Creatinine Ratio 22 (6-26); Bilirubin,Total 0.5 mg/dL (0.3-1.0); Blood Urea Nitrogen 24 mg/dL (8-23); Calcium 8.7 mg/dL (8.6-10.3); Carbon Dioxide 28 mEq/L (23-29); Chloride 106 mEq/L (98-107); Globulin 3.5 g/dL (2.4-3.5); Glucose 145 mg/dL (70-105); Iron 25 mcg/dL (65-175); Magnesium 2.2 mg/dL (1.6-2.6); Osmolality,Calculated 301 (280-300); Phosphorous 3.4 mg/dL (2.7-4.5); Potassium 3.7 mEq/L (3.5-5.1); Sodium 142 mEq/L (136-145); Transferrin 201 mg/dL (203-362); eGFR For African Americans > 60 (> 60); eGFR For Non-African Americans > 60 (> 60)
[2021-03-24 06:54] LABS: Thyroid Stimulating Hormone 1.706 mcIU/mL (0.340-5.600)
[2021-03-24 06:58] LABS: Ferritin 172 ng/mL (20-250)
[2021-03-24 07:01] LABS: Folate 15.5 ng/mL (3.0-16.0)
[2021-03-24] MEDS: Insulin LISPRO 300 UNITS/3 ML VIAL SUBQ SCH ×4 (07:18→21:15)
[2021-03-24] MEDS ORDERED: Iron Sucrose Complex 400 MG in 0.9 % Sodium Chloride 250 ML IVPB ONE (09:00)
[2021-03-24] MEDS ORDERED: Furosemide 20 MG TABLET PO SCH (09:00)
[2021-03-24] MEDS: lisinopriL 5 MG TABLET PO SCH (10:30)
[2021-03-24] MEDS: Furosemide 20 MG/2 ML VIAL IVP SCH (10:30)
[2021-03-24] MEDS: predniSONE 20 MG TABLET PO SCH (10:30)
[2021-03-24] MEDS: FLUoxetine 20 MG CAPSULE PO SCH (10:30)
[2021-03-24] MEDS: carvediloL 6.25 MG TABLET PO SCH (10:30)
[2021-03-24] MEDS: Doxycycline 100 MG CAPSULE PO SCH ×2 (10:30→21:14)
[2021-03-24] MEDS: Aspirin Enteric Coated 81 MG Tablet PO SCH (10:30)
[2021-03-24] MEDS: Lactobacillus 1 EACH CAP.SPRINK PO SCH ×2 (10:30→21:14)
[2021-03-24] MEDS: *HR* Amiodarone 200 MG TABLET PO SCH (10:30)
[2021-03-24] MEDS: Apixaban 5 MG TABLET PO SCH ×2 (10:30→21:13)
[2021-03-24] MEDS: risperiDONE 1 MG TABLET PO SCH (10:30)
[2021-03-24] MEDS: cefTRIAXone 1,000 MG in Water for inj. (sterile) 10 ML IVP SCH (10:31)
[2021-03-24] MEDS: polyethylene glycoL 3350 17 GM POWD.PACK PO SCH (10:31)
[2021-03-24] MEDS: Artificial Tears SOLN 15 ML BOTTLE BOTH EYES SCH ×2 (10:33→21:22)
[2021-03-24] MEDS: Chlorhexidine Rinse 15 ML MOUTHWASH MM SCH ×2 (10:34→21:13)
[2021-03-24] MEDS: Budesonide/Formoterol 160/4.5 1 PUFF INH IH SCH ×2 (10:50→22:02)
[2021-03-24 19:26] LABS: Chol/HDL Ratio 3.6 (0-4.9)
[2021-03-25] MEDS: Ipratropium/Albuterol Neb 3 ML IH SCH ×4 (04:42→23:04)
[2021-03-25 05:38] LABS: Hematocrit 37.8 % (37.5-50.1); Hemoglobin 11.8 g/dL (12.9-16.9); Mean Corpuscular HGB Conc 31.2 g/dL (31.6-35.5); Mean Corpuscular Hemoglobin 27.3 pg (28.0-33.3); Mean Corpuscular Volume 87.3 fL (83.0-100.0); Mean Platelet Volume 10.1 fL (9.4-12.4); Platelet Count 263 K/mcL (140-400); Red Blood Count 4.33 M/mcL (4.19-5.50); Red Cell Distribution Width 17.4 % (11.5-14.5); White Blood Count 17.5 K/mcL (4.3-11.1)
[2021-03-25] MEDS: carvediloL 6.25 MG TABLET PO SCH (07:26)
[2021-03-25 07:27] LABS: Alanine Aminotransferase 72 Units/L (7-52); Albumin 3.5 g/dL (3.5-5.7); Albumin/Globulin Ratio 1.1 (1.1-2.2); Alkaline Phosphatase 70 Units/L (34-104); Aspartate Amino Transferase 21 Units/L (13-39); BUN/Creatinine Ratio 23 (6-26); Bilirubin,Total 0.4 mg/dL (0.3-1.0); Blood Urea Nitrogen 23 mg/dL (8-23); Calcium 8.5 mg/dL (8.6-10.3); Carbon Dioxide 32 mEq/L (23-29); Chloride 105 mEq/L (98-107); Globulin 3.3 g/dL (2.4-3.5); Glucose 110 mg/dL (70-105); Osmolality,Calculated 298 (280-300); Phosphorous 3.4 mg/dL (2.7-4.5); Potassium 3.6 mEq/L (3.5-5.1); Sodium 142 mEq/L (136-145); Total Protein 6.8 g/dL (6.4-8.9); eGFR For African Americans > 60 (> 60); eGFR For Non-African Americans > 60 (> 60)
[2021-03-25] MEDS: Insulin LISPRO 300 UNITS/3 ML VIAL SUBQ SCH ×3 (07:53→16:51)
[2021-03-25] MEDS: Artificial Tears SOLN 15 ML BOTTLE BOTH EYES SCH ×2 (07:55→20:23)
[2021-03-25] MEDS: Furosemide 20 MG/2 ML VIAL IVP SCH (07:56)
[2021-03-25] MEDS: Apixaban 5 MG TABLET PO SCH ×2 (07:56→20:23)
[2021-03-25] MEDS: cefTRIAXone 1,000 MG in Water for inj. (sterile) 10 ML IVP SCH (07:56)
[2021-03-25] MEDS: carvediloL 25 MG TABLET PO SCH ×2 (07:56→16:51)
[2021-03-25] MEDS: Aspirin Enteric Coated 81 MG Tablet PO SCH (07:56)
[2021-03-25] MEDS: Chlorhexidine Rinse 15 ML MOUTHWASH MM SCH ×2 (07:56→20:23)
[2021-03-25] MEDS: risperiDONE 1 MG TABLET PO SCH (07:57)
[2021-03-25] MEDS: lisinopriL 5 MG TABLET PO SCH (07:57)
[2021-03-25] MEDS: Doxycycline 100 MG CAPSULE PO SCH ×2 (07:57→20:23)
[2021-03-25] MEDS: Lactobacillus 1 EACH CAP.SPRINK PO SCH ×2 (07:57→20:23)
[2021-03-25] MEDS: polyethylene glycoL 3350 17 GM POWD.PACK PO SCH (07:57)
[2021-03-25] MEDS: FLUoxetine 20 MG CAPSULE PO SCH (07:57)
[2021-03-25] MEDS: *HR* Amiodarone 200 MG TABLET PO SCH (07:57)
[2021-03-25] MEDS: predniSONE 20 MG TABLET PO SCH (07:57)
[2021-03-25] MEDS ORDERED: lisinopriL 5 MG TABLET PO ONE (10:30)
[2021-03-25] MEDS: Budesonide/Formoterol 160/4.5 1 PUFF INH IH SCH ×2 (10:35→23:04)
[2021-03-26] MEDS: Insulin LISPRO 300 UNITS/3 ML VIAL SUBQ SCH ×2 (01:48→09:12)
[2021-03-26] MEDS: Ipratropium/Albuterol Neb 3 ML IH SCH ×2 (03:23→09:33)
[2021-03-26 03:43] LABS: Hematocrit 39.5 % (37.5-50.1); Hemoglobin 11.9 g/dL (12.9-16.9); Mean Corpuscular HGB Conc 30.1 g/dL (31.6-35.5); Mean Corpuscular Hemoglobin 26.7 pg (28.0-33.3); Mean Corpuscular Volume 88.6 fL (83.0-100.0); Mean Platelet Volume 10.3 fL (9.4-12.4); Platelet Count 262 K/mcL (140-400); Red Blood Count 4.46 M/mcL (4.19-5.50); Red Cell Distribution Width 17.3 % (11.5-14.5); White Blood Count 14.4 K/mcL (4.3-11.1)
[2021-03-26 04:04] LABS: Alanine Aminotransferase 62 Units/L (7-52); Albumin 3.4 g/dL (3.5-5.7); Albumin/Globulin Ratio 1.1 (1.1-2.2); Alkaline Phosphatase 65 Units/L (34-104); Aspartate Amino Transferase 14 Units/L (13-39); BUN/Creatinine Ratio 26 (6-26); Bilirubin,Total 0.5 mg/dL (0.3-1.0); Blood Urea Nitrogen 23 mg/dL (8-23); Calcium 8.6 mg/dL (8.6-10.3); Carbon Dioxide 32 mEq/L (23-29); Chloride 102 mEq/L (98-107); Globulin 3.1 g/dL (2.4-3.5); Glucose 107 mg/dL (70-105); Magnesium 1.7 mg/dL (1.6-2.6); Osmolality,Calculated 296 (280-300); Phosphorous 3.5 mg/dL (2.7-4.5); Potassium 3.5 mEq/L (3.5-5.1); Sodium 141 mEq/L (136-145); Total Protein 6.5 g/dL (6.4-8.9); eGFR For African Americans > 60 (> 60); eGFR For Non-African Americans > 60 (> 60)
[2021-03-26] MEDS ORDERED: Furosemide 20 MG TABLET PO SCH (08:00)
[2021-03-26] MEDS ORDERED: lisinopriL 10 MG TABLET PO SCH (09:00)
[2021-03-26] MEDS: Chlorhexidine Rinse 15 ML MOUTHWASH MM SCH (09:18)
[2021-03-26] MEDS: cefTRIAXone 1,000 MG in Water for inj. (sterile) 10 ML IVP SCH (09:18)
[2021-03-26] MEDS: Doxycycline 100 MG CAPSULE PO SCH (09:19)
[2021-03-26] MEDS: polyethylene glycoL 3350 17 GM POWD.PACK PO SCH (09:19)
[2021-03-26] MEDS: predniSONE 20 MG TABLET PO SCH (09:19)
[2021-03-26] MEDS: Apixaban 5 MG TABLET PO SCH (09:19)
[2021-03-26] MEDS: Aspirin Enteric Coated 81 MG Tablet PO SCH (09:19)
[2021-03-26] MEDS: Lactobacillus 1 EACH CAP.SPRINK PO SCH (09:19)
[2021-03-26] MEDS: carvediloL 25 MG TABLET PO SCH (09:19)
[2021-03-26] MEDS: risperiDONE 1 MG TABLET PO SCH (09:19)
[2021-03-26] MEDS: FLUoxetine 20 MG CAPSULE PO SCH (09:19)
[2021-03-26] MEDS: Artificial Tears SOLN 15 ML BOTTLE BOTH EYES SCH (09:20)
[2021-03-26] MEDS: Budesonide/Formoterol 160/4.5 1 PUFF INH IH SCH (09:34)
[2021-03-26 10:31] VITALS: O2SAT 92
[2021-03-26 10:57] VITALS: BP 139/79; PULSE 102; TEMP 98
== END 2021-03-26 11:16 | DRG 871 ==
LOC: EMEROOARM 18:03 → 3ANU 18:03 → SUATTDRO 22:46 → 3ANU 03-23 00:33 → SUATTDRO 03-24 16:20
PROVIDERS: ADMIT Internal Medicine; ATTEND Internal Medicine